=== PATIENT | male | born 1945 | race Caucasian/White ===

== ENCOUNTER 2016-10-22 12:55 | Inpatient (IN) | payer MEDICARE, BC ==
[~2016-10-22] VITALS: Ht 162.6 cm; Wt 141.5 kg
[2016-10-22 17:00] VITALS: BP 148/70
[2016-10-22] MEDS ORDERED: DEXTROSE 50% 50 ML SYRINGE IV PRN (17:45)
[2016-10-22] MEDS ORDERED: GLUCOSE 4 GM CHEW TABLET PO PRN (17:45)
[2016-10-22] MEDS ORDERED: GLUCAGON FOR INJ 1 MG VIAL (J1610) SC PRN (17:45)
[2016-10-22] MEDS ORDERED: FURO40TA2 PO (17:47)
[2016-10-22] MEDS ORDERED: ABIL30TA4 PO (17:47)
[2016-10-22] MEDS ORDERED: DILT360C16 PO (17:47)
[2016-10-22] MEDS ORDERED: LORA0.5T11 PO (17:47)
[2016-10-22] MEDS ORDERED: CARV25TA PO (17:47)
[2016-10-22] MEDS ORDERED: ALLO100T PO (17:47)
[2016-10-22] MEDS ORDERED: PRAV40TA2 PO (17:47)
[2016-10-22] MEDS ORDERED: GLIP5TAB8 PO (17:47)
[2016-10-22] MEDS ORDERED: SERT50TA PO (17:47)
[2016-10-22] MEDS ORDERED: OMEP20CA3 PO (17:47)
[2016-10-22] MEDS ORDERED: ENAL20TA PO (17:47)
[2016-10-22] MEDS ORDERED: FISH1000 PO (17:47)
[2016-10-22] MEDS ORDERED: INCR1INH INH (17:48)
[2016-10-22] MEDS ORDERED: IPRASOL4 INH (17:48)
[2016-10-22] MEDS ORDERED: SYMB80INH INH (17:48)
[2016-10-22] MEDS ORDERED: METH125VL IM (17:49)
[2016-10-22] MEDS ORDERED: HEPARIN SOD (PORCINE) 5000 UNITS/ML VIAL IV PRN (18:00)
[2016-10-22 18:09] LABS: VENOUS O2 SATURATION 83.4 % (60.0-80.0); VENOUS PARTIAL PRESSURE CO2 41.9 mmHg (38.0-50.0); VENOUS PARTIAL PRESSURE O2 51.7 mmHg (30.0-50.0); VENOUS STANDARD HCO3 26.1 MEQ/L
[2016-10-22] MEDS ORDERED: LORazepam 0.5 MG TAB PO PRN (18:30)
[2016-10-22] MEDS ORDERED: HEPARIN DRIP 25,000 UNITS in APPROPRIATE DILUENT 1 EA IV SCH (18:30)
--- NOTE | 2016-10-22 18:32 | REP ---
Portable chest, 06:06 p.m., single frontal view, the patient upright: Comparison is 08/29/2003. There is diffuse interstitial coarsening as an interval change. This could be partially secondary to under penetrated radiographic technique, however interstitial infiltrates cannot be entirely discounted. Cardiac size is enlarged, however there has magnification from portable positioning. The study is under penetrated. This may be a consequence of patient body habitus. Impression: Under penetrated technique. Interstitial coarsening as described. Cardiomegaly as described. Signed by Louis Palmer MD 10/22/2016 06:24 P
[2016-10-22 18:42] LABS: ADD MANUAL DIFFER YES; MEAN CORPUSCULAR HEMOGLOBIN 19.5 pg (27.0-33.0); MEAN CORPUSCULAR HGB CONC 28.7 g/dl (32.0-36.5); PLATELET COUNT, AUTOMATED 501 k/mm3 (150-450); RED CELL DISTRIBUTION WIDTH 18.3 % (11.5-14.5); WHITE BLOOD COUNT 13.6 K/mm3 (4.0-10.0)
[2016-10-22 18:54] LABS: ALBUMIN/GLOBULIN RATIO 0.83 (1.00-1.93); BILIRUBIN,TOTAL 0.6 MG/DL (0.2-1.0); CREATININE FOR GFR 1.81 MG/DL (0.70-1.30); GLOMERULAR FILTRATION RATE 39.7 (>42); MAGNESIUM LEVEL 1.8 MG/DL (1.8-2.4); POTASSIUM SERUM 4.5 MEQ/L (3.5-5.1); TOTAL PROTEIN 6.6 GM/DL (6.4-8.2)
[2016-10-22] MEDS: SYMBICORT 80/4.5MCG INHALER 6GM INH SCH (19:39)
--- NOTE | 2016-10-22 19:40 | REPUSA ---
CT of the chest without contrast Clinical statement: infiltrate. Technique: Multiple axial CT images were obtained with 5 mm cuts through the chest without administra tion of contrast. No comparison is available. Findings: There is a single enlarged precarinal lymph node measuring 2.2 x 1.2 cm. The visualized por tions of the thyroid gland is unremarkable. There are severe emphysematous changes seen throughout th e lungs bilaterally. Chronic interstitial scarring is seen throughout the lungs. There is a small rig ht lower lobe infiltrate and pleural effusion. Limited imaging of the upper abdomen does not demonstr ate any acute abnormalities. There are no suspicious osseous lesions. Impression: 1. Moderately severe emphysema and COPD. 2. Small right lower lobe infiltrate/atelectasis and pleural effusion. 3. Single enlarged precarinal lymph node.
--- NOTE | 2016-10-22 19:40 | REPUSA ---
Clinical history: Pain, swelling. Findings: The common femoral, superficial femoral, popliteal, and other deep venous structures compre ss normally and demonstrate normal color Doppler flow. Normal venous waveforms with augmentation are seen. Impression: No evidence of deep vein thrombosis in the femoral popliteal venous system.
[2016-10-22 19:45] LABS: HYPOCHROMASIA 2+; NUCLEATED RED BLOOD CELL 1 % (0-0)
[2016-10-22 19:46] LABS: ANISOCYTOSIS 2+; MICROCYTOSIS 3+; POLYCHROMASIA 1+
[2016-10-22 20:00] VITALS: BP 165/74
[2016-10-22] MEDS: FUROSEMIDE 40 MG/4 ML VIAL (J1940) IV SCH (20:19)
[2016-10-22] MEDS: CARVedilol 12.5 MG TAB PO SCH (20:20)
[2016-10-22] MEDS: ENALAPRIL MALEATE 10 MG TAB PO SCH (20:20)
[2016-10-22] MEDS: PRAVASTATIN 20 MG TAB PO SCH (20:21)
[2016-10-22] MEDS: ALLOPURINOL 100 MG TAB PO SCH (20:21)
[2016-10-22] MEDS: HumaLOG INSULIN (NovoLOG) PER UNIT SC SCH (20:54)
[2016-10-22 21:58] VITALS: O2SAT 90
[2016-10-22 22:00] VITALS: BP 125/60
[2016-10-22] MEDS: HEPARIN SOD (PORCINE) 5000 UNITS/ML VIAL SQ SCH (22:13)
[2016-10-22] MEDS: NYSTATIN 100,000 UNITS/GM TOPICAL PWD 15 GM TOP SCH (22:13)
[2016-10-22 23:00] VITALS: BP 128/59
--- NOTE | 2016-10-22 23:29 | CR ---
DATE OF CONSULTATION: 10/22/2016 REFERRING PROVIDER: Seth Biggs MD PRIMARY CARE PROVIDER: [facility], Lolita Perez NP REASON FOR CONSULTATION: Congestive heart failure. HISTORY OF PRESENT ILLNESS: 71-year-old male well known by the office and the last time he was seen there was on 08/15/2016, and has been stable. In the interim, he was seen by pulmonary and has been using oxygen continuously at home. He went to the hospital in [place] because of increasing shortness of breath, pedal edema, orthopnea that was going on for about 4-5 days. It seemed that he was hypoxemic on room air with an oxygen saturation of 91% on 4 liters nasal cannula. He also was found to be anemic. He was transferred here to [facility] for further management and monitoring. Cardiology consult was called. When I saw Mr. Gray Corea, he was in supine in bed in no acute distress at rest, on oxygen supplement and his was at bedside. He stated that he feels better. He denies any chest pain. He denies any active bleeding. He also denies any fever or chills. He takes medication regularly. Prior to going to the hospital, he was having shortness of breath with activity associated with a rapid heart rate and, as mentioned above, orthopnea. He denies chest pain. He denies nausea, vomiting, diarrhea, melena, or hematemesis. He denies any dysuria, polyuria, or hematuria. There is no focal manifestation. He has a past medical history positive for hypertension, hyperlipidemia, diabetes mellitus, chronic obstructive pulmonary disease (COPD), obesity, obstructive sleep apnea, arthritis/gout, anxiety/depression, gastroesophageal reflux disease (GERD), renal insufficiency. There is no history of obstructive coronary artery disease, myocardial infarction, atrial fibrillation, significant valvular heart disease, hyperlipidemia, CVA, sudden cardiac . He had an echocardiogram done in the past and there was a normal left ventricular (LV) systolic and diastolic function. MEDICATIONS: According to my last office visit note: - allopurinol 100 mg by mouth twice a day - albuterol MDI two puffs every 4 hours as needed - Cardizem CD 360 mg by mouth daily - carvedilol 12.5 mg tablet one-half tablet by mouth twice a day - enalapril 20 mg by mouth twice a day - Lasix 40 mg by mouth daily - fish oil 1000 mg by mouth daily - glipizide 5 mg by mouth daily - lorazepam 0.5 mg by mouth three times a day as needed - multivitamin one tablet by mouth daily - omeprazole 20 mg by mouth daily - Symbicort 80-4.5 mcg two puffs twice a day - tramadol 50 mg tablet 1-2 tablets as needed for pain - Zoloft 25 mg by mouth daily CURRENT MEDICATIONS: Are: - levofloxacin 250 mg IV every 24 hours - allopurinol 100 mg by mouth twice a day - Abilify 15 mg by mouth daily - budesonide 80/4.5 two puffs twice a day via inhalation - carvedilol 25 mg by mouth twice a day - Digoxin 360 mg by mouth daily - enalapril 20 mg by mouth twice a day - Lasix 40 mg IV every 4 hours with parameters - heparin IV drip - lorazepam 0.5 mg by mouth three times a day as needed for anxiety - fish oil 1000 mg by mouth daily - omeprazole 20 mg by mouth daily - pravastatin 40 mg by mouth daily - sertraline 50 mg by mouth daily - regular insulin coverage as well as glucagon and glucose tablet as needed for hypoglycemia PAST SURGICAL HISTORY: Positive for hernia repair. SOCIAL HISTORY: Patient lives in [facility], with his . He is a former smoker and has stopped many years ago. He denies any ethyl alcohol (EtOH) abuse or illicit drugs. ALLERGIES: No known drug allergies. ADVANCED DIRECTIVES: Patient is a FULL CODE. On physical examination, patient is alert and oriented, in no acute distress at rest, and his last vital signs revealed a blood pressure of 148/70, with a pulse of 90, respirations 24, and maximum temperature was 99 degrees Fahrenheit, with an oxygen saturation of 87-89% on 5 liters nasal cannula. Examination of the head, ears, eyes, nose and throat: Atraumatic. Neck is supple. No carotid bruits heard. The lungs revealed bilateral crackles at the bases. No wheezing. The heart examination revealed irregular heart sounds without gallops. The point of maximal impulse (PMI) is displaced inferiorly and laterally. There is no rub. I could not appreciate any murmurs. Abdomen is soft and nontender, bowel sounds active, obese. Extremities revealed +3 bilateral pitting lower leg edema. Neurological examination grossly is negative for focal deficit. LABORATORY DATA: EKG done on 10/24/2016, outside of the hospital at 08:08:48 revealed an irregular heart beat that seems to be sinus with multiple short atrial runs and premature atrial contractions (PACs). There is left axis deviation, left anterior hemiblock, and right bundle branch block. This was compared with EKG on 08/19/2015, no remarkable changes but the rhythm was more regular without any premature beats and there was lead reversal between I and aVR. TX was about 200 ms, unchanged. IMPRESSION: 1. Congestive heart failure in this 71-year-old male with history of normal left ventricular ejection fraction (LVEF). Patient seems to be stable and he stated that his shortness of breath has improved and I will continue with the diuretics. He is scheduled to have an echocardiogram and it will be reviewed, then further recommendation will be given. He has history of normal ejection fraction (EF) according to the most recent assessment and I will try to get a copy of his last echocardiogram from the office. He will continue with the two atrioventricular (AV) blocking agents. He is also on angiotensin-converting enzyme (JULES) inhibitor. We shall monitor closely his BUN, creatinine, and serum potassium. His blood pressure so far seems to be stable and, if needed, I will add spironolactone. 2. Atrial fibrillation, no prior history and the electrocardiogram I have reviewed in the chart does not seem to be quite atrial fibrillation and in view of his anemia, the IV heparin will be discontinued but he will given subcutaneous heparin for deep venous thrombosis (DVT) prophylaxis. Will continue with the calcium channel sy and the beta sy. 3. Hypertension, and he will be monitored. 4. History of hyperlipidemia, on a statin. 5. Diabetes mellitus, and this is being addressed. 6. History of chronic obstructive pulmonary disease (COPD) and obstructive sleep apnea. He has not been able to tolerate his continuous positive airway pressure (CPAP) machine and he has not been using it at home. 7. Anemia and he will need further workup. It was a pleasure to participate in the care of Mr. Gray Corea for his underlying cardiac condition. I will continue to monitor him along with you while in the hospital and as outpatient. Please do not hesitate to call if any questions. NICK
--- NOTE | 2016-10-22 23:40 | HPE ---
DATE OF ADMISSION: 10/22/2016 TIME PATIENT WAS SEEN : 1700. THE PATIENT'S SEAM CHECKER: Dr. Cardenas CHIEF COMPLAINT: Shortness of breath. HISTORY OF PRESENT ILLNESS: 71-year-old male with past medical history of severe chronic obstructive pulmonary disease (COPD), diastolic heart failure with preserved ejection fraction, history of anemia, chronic kidney disease stage III , hypertension, zti-boqlrul-elhgcxalo type 2 diabetes, gastroesophageal reflux disease (GERD), anxiety, gout, chronic pain presented [facility] for shortness of breath and was later on transferred to our facility. On the 2nd day, he was at [facility]. According to the patient, he has been having increased trouble breathing for the past four or five days. He also noticed increased sputum production, which was clear to yellow, also increased leg swelling, worse from baseline swelling. According to him, he used 4.5 liters of oxygen at home and that helped obstructive sleep apnea. However, he is not compliant with mask for years. He stated that while at [facility] he received levofloxacin at 750 and was later reduced to 500 mg. He also received Solu-Medrol 125 mg every 12 hours, also Lasix 40 mg twice a day and it was increased to 60 mg IV twice a day this morning. The patient felt somewhat better at [facility]. However, while he was there, he was found to have a new onset of atrial fibrillation on top of his chronic right bundle branch block and anterior fascicular block. According to the patient, he saw Dr. Cardenas just two months ago who recommended him to have a cardiac stress test done; however, he refused. The patient does not smoke. However, he used to smoke 7 years ago, 2 1/2 packs per day for 40 years and does still drink one or two beers at least four times a week and he is also noncompliant with salt intake. He stated that he likes to eat salt. Otherwise, he said that he never had a heart catheter or stent placement. The patient also denies any abdominal pains, any nausea, vomiting, diarrhea or constipation. However, he does admit to hemorrhoid and bleeding from the hemorrhoid chronically for many months and he also has a chest pressure and he says it is better with oxygen and worse without oxygen. ALLERGIES: No known drug allergies. HOME MEDICATIONS INCLUDING: - DuoNeb one inhalation four times a day - allopurinol 100 mg one tablet by mouth twice a day - Abilify 50 mg one tablet by mouth daily - Symbicort 84.5 mcg two puff inhalation twice a day - carvedilol 25 mg one tablet by mouth twice a day - diltiazem 360 mg one tablet by mouth daily - enalapril 20 mg one tablet by mouth twice a day - fish oil 1000 mg one tablet by mouth daily - Lasix 40 mg one tablet by mouth twice a day - glipizide 10 mg one tablet by mouth daily - Incruse 62.5 mcg inhalation daily - Ativan 0.5 mg one tablet by mouth three times a day as needed - Solu-Medrol 125 mg intramuscular (IM) every 12 hours, which was started on [facility] - omeprazole 20 mg by mouth daily - Pravastatin 40 mg by mouth at bedtime (q.h.s.) - sertraline 50 mg one tablet by mouth daily PAST MEDICAL HISTORY INCLUDIN. Diastolic heart failure with preserved ejection fraction on the last echocardiogram. However, we do not have access to the echocardiogram report. 2. Chronic kidney disease (CKD), stage III, severe. 3. 4.5 nasal cannula oxygen 24 hours at home. 4. Hypertension. 5. Obstructive sleep apnea, noncompliant with CPAP. 6. Omq-oqpaabt-ajgppcwqm type 2 diabetes. 7. Gastroesophageal reflux disease (GERD). 8. Anxiety. 9. Gout. 10. Chronic pain PAST SURGICAL HISTORY: Denies. SOCIAL HISTORY: The patient admits to living with . Currently working with a worker. However, was able to work better before 4 to 5 days ago. The patient quit smoking 7 years ago. He used to smoke 2 1/2 packs for 40 years. Admits to recent drinking about one or two beers two days ago and usually drinks roughly 4 times a week. However, he denies any heavy drinking. Denies any recreational drug use. FAMILY HISTORY: Admits to father has heart disease. REVIEW OF SYSTEMS: GENERAL: Denies any recent travel or sick contacts. Denies any recent weight loss, any fever or chills. HEENT: Denies any changes with vision, hearing or taste. CARDIOVASCULAR: Admits to chest pressure. Denies any racing heart beat or palpitations. LUNGS: Admits to trouble breathing. Also admits to chronic obstructive pulmonary disease (COPD). Admits to the use of oxygen 4.5 liters on nasal cannula. Admits to noncompliance with mask for obstructive sleep apnea. Usually, the patient sleeps sitting up on the recliner. GASTROINTESTINAL (GI): Denies any abdominal pain, nausea, vomiting, diarrhea or constipation. Admits to gastrointestinal (GI) blood loss from hemorrhoid. GENITOURINARY (): Denies any problem with urination. HEMATOLOGY/ONCOLOGY: Denies any easy bruising, any bleeding anywhere. ENDOCRINE: Admits to feeling cold all the time. Denies any heat intolerance. PSYCHIATRY: Admits to anxiety. PHYSICAL EXAMINATION: VITAL SIGNS: Temperature 99, pulse 89, respirations 20, blood pressure 148/70, oxygen saturation at 89% on VentiMask with FiO2 of 35. GENERAL: The patient is a morbidly obese elderly male who was alert, awake and oriented times three, does not appear to be distress, sitting up in his bed with head elevated at roughly 60 degrees on VentiMask. HEENT: Normocephalic, atraumatic. Extraocular muscles intact. Mucous moist. NECK: Supple. No neck lymphadenopathy. However, the patient does have jugular venous distension (JVD) extending to the ear lobes. CARDIOVASCULAR: Normal S1, S2. Difficult to auscultate due to increase AP diameter and body habitus. Irregular heart beat. LUNGS: With slight rales bilaterally. ABDOMEN: Positive bowel sounds, soft and nontender, nondistended. No peritoneal signs. No ecchymosis. EXTREMITIES: 2+ pitting edema in bilateral lower extremities extending to below the knee. SKIN: Warm and dry. There was slight erythema on the left inner thigh. NEURO: Cranial nerves II/XII intact. No focal neurological deficit. LABORATORY: White blood count (WBC) 13.6, hemoglobin 8.4, hematocrit 29.4 with a platelet count of 501 and MCV of 68. Sodium 131, potassium 4.5, chloride 94, bicarbonate 27, anion gap 10, BUN 29, creatine 1.81, glomerular filtration rate (GFR) 39, fasting glucose 147, calcium 9, magnesium 1.8, total bilirubin 0.6, AST 14, ALT 20, alkaline phosphatase 75, total creatine kinase 90, CK-MB 1, CK-MB index 1.1, troponin 0.03, total protein 6.6, albumin 3, it was low. The patient's PTT was 23. The patient's venous blood gas shows a pH of 7.4, pCO2 of 41.9 and pO2 of 51. The patient's Acu-check glucose was 168. The patient had a portable chest x-ray in the intensive care unit (ICU) shows under penetrated technique, interstitial coarsening described, as interstitial infiltrates cannot be entirely discounted. ASSESSMENT AND PLAN: 71-year-old male who was transferred from [facility] with multiple comorbidities, was initially thought to have a chronic obstructive pulmonary disease (COPD) exacerbation and had Levaquin and Solu-Medrol. However, was later believed to be congestive heart failure (CHF) exacerbation, was transferred to our care due to new onset of atrial fibrillation in addition to the patient's chronic disease and chronic obstructive pulmonary disease (COPD) exacerbation, presented with: 1. Shortness of breath, likely secondary to pulmonary edema from decompensated congestive heart failure (CHF), likely exacerbated by new onset of atrial fibrillation and also anemia and alcohol use, not compliant with sodium diet, also, steroid use and DuoNeb use before transferring. At this point, will continue Lasix 40 mg IV every 4 hours with negative 1.5 liters in 24 hours and echocardiogram has been ordered. In addition, we have consulted Dr. Cardenas from cardiology. We appreciate his help. At this point, will continue his home medications with Cardizem 360 mg and also Coreg 25 mg by mouth twice a day with hold parameters. Will continue to monitor input and output. 2. New onset of atrial fibrillation. The patient initially had rapid ventricular response at [facility]. However, currently, the patient' s heart rate is around 100. The patient is home medication, Cardizem 360 mg and also Coreg 25 mg. However, the patient's clinical picture is complicated by having a history of right bundle branch block with anterior fascicular block. Therefore, cardiology's recommendation is appreciated. We have started the patient on heparin drip as well. Possibly transitioning the patient to coumadin later on. The patient's new onset atrial fibrillation is possibly related to the congestive heart failure (CHF). Also, the patient is noncompliant with CPAP for obstructive sleep apnea, as well as the anemia and alcohol use and also steroid and DuoNeb use. 3. Leukocytosis. The patient's white blood count (WBC) was slightly elevated at 13.6, possibly due to stress versus steroid usage. Will continue to trend. Currently, the patient does not have a fever. Will consider infectious etiologies if the patient develops a fever or continue to have a white cell increase or if white blood count (WBC) continues to increase. 4. Chronic kidney disease stage III, appears to be baseline. Continue to monitor. 5. Severe chronic obstructive pulmonary disease (COPD) with 4.5 liters of oxygen at home, continue to titrate oxygen between 88 and 92%. 6. Hypertension. Continue beta sy with previously mentioned enalapril 20 mg by mouth twice a day and continue to monitor the patient. 7. Hyperlipidemia. Continue pravastatin 40 mg by mouth at bedtime (q.h.s.) 8. Obstructive sleep apnea, noncompliant with CPAP at night. Will place the patient on obstructive sleep apnea protocol and continue the patient on nasal cannula throughout the night. 9. History of gastroesophageal reflux disease (GERD). Continue proton pump inhibitor (PPI). 10. History of anxiety. Continue home medication with Zoloft and also as needed Ativan. 11. History of gout. Continue allopurinol. 12. Chronic pains. Will continue the patient on Tylenol. 13. Morbid Obesity. BMI 52. Stable. 14. Deep vein thrombosis (DVT) prophylaxis. Continue the patient on heparin drip for new onset atrial fibrillation. DISPOSITION: Will follow cardiology's recommendation at this point. Will continue to diurese the patient and monitor the patient's heart rate for possible rapid ventricular response and continue beta sy at this point. However, will be cautious due to the patient has both right beta blockers and also anterior fascicular block and monitor the patient's input and output closely. The patient has been discussed with attending doctor, Dr. Alex. My preceptor for this patient encounter was Dr. Alex. The preceptor was physically present in the building during the encounter and was fully available. As needed, all aspects of the patient interview, examination, medical decision making process, and medical care plan development were reviewed and approved by the preceptor. The preceptor is aware and concurs with the plan as stated in the body of this note and will attest to such by his/her cosignature. NICK
[2016-10-23] VITALS (7 sets, daily range): BP systolic 98–146; BP diastolic 55–67
[2016-10-23] MEDS: FUROSEMIDE 40 MG/4 ML VIAL (J1940) IV SCH ×6 (00:14→20:59)
[2016-10-23 05:21] LABS: ADD MANUAL DIFFER YES; MEAN CORPUSCULAR HEMOGLOBIN 19.4 pg (27.0-33.0); MEAN CORPUSCULAR HGB CONC 28.6 g/dl (32.0-36.5); PLATELET COUNT, AUTOMATED 494 k/mm3 (150-450); RED CELL DISTRIBUTION WIDTH 18.1 % (11.5-14.5); WHITE BLOOD COUNT 14.7 K/mm3 (4.0-10.0)
[2016-10-23 05:30] LABS: ALBUMIN 2.7 GM/DL (3.2-5.2); ALBUMIN/GLOBULIN RATIO 0.73 (1.00-1.93); BILIRUBIN,TOTAL 0.4 MG/DL (0.2-1.0); CALCIUM LEVEL 8.8 MG/DL (8.8-10.2); CREATININE FOR GFR 2.05 MG/DL (0.70-1.30); GLOMERULAR FILTRATION RATE 34.3 (>42); MAGNESIUM LEVEL 1.9 MG/DL (1.8-2.4); PERCENT SATURATION 4.2 % (19.7-37.4); TOTAL PROTEIN 6.4 GM/DL (6.4-8.2)
[2016-10-23 06:22] LABS: NUCLEATED RED BLOOD CELL 1 % (0-0)
[2016-10-23 06:23] LABS: ANISOCYTOSIS 1+; HYPOCHROMASIA 2+; MICROCYTOSIS 3+
[2016-10-23] MEDS: HEPARIN SOD (PORCINE) 5000 UNITS/ML VIAL SQ SCH ×3 (06:29→21:01)
[2016-10-23 06:38] LABS: EOS % 0.2 % (0.0-3.0); LARGE UNSTAINED CELL # 0.1 K/mm3 (0.0-0.4); LARGE UNSTAINED CELL % 0.5 % (0.0-4.0); LYMPH # 0.5 K/mm3 (1.5-4.5); LYMPH % 3.2 % (24.0-44.0); MONO # 0.4 K/mm3 (0.0-0.8); MONO % 2.9 % (0.0-5.0); NEUTROPHILS # 13.5 K/mm3 (1.8-7.7); NEUTROPHILS % 93.2 % (36.0-66.0); RETIC HEMOGLOBIN CONTENT CHr 20.6 PG (24-36); RETICULOCYTE ABSOLUTE ADVIA212 93 x10(9)/L (17-77)
[2016-10-23] MEDS: SYMBICORT 80/4.5MCG INHALER 6GM INH SCH ×2 (07:44→19:40)
--- NOTE | 2016-10-23 08:03 | ECGEPIP ---
Stationary ECG Study [facility] Test Date: 2016-10-22 Pat Name: FIDEL RUIZ Department: Room: [place] [address] Gender: M Band Splicer: HARSH : 1945 Requested By: CHAYO FORBES Order Number: [id number] Reading MD: Ozzy Dejesus Measurements Intervals [place] Rate: 87 P: 10 IA: 176 QRS: -44 QRSD: 143 T: -5 QT: 386 QTc: 467 Interpretive Statements SINUS RHYTHM Left anterior fascicular block RIGHT BUNDLE BRANCH BLOCK POSSIBLE LEFT VENTRICULAR HYPERTROPHY Comparison tracing not on file Electronically Signed On 10-23-2016 8:03:51 EDT by Ozzy Dejesus
[2016-10-23] MEDS: OMEGA-3 1050MG CAPSULE PO SCH (08:05)
[2016-10-23] MEDS: SERTRALINE HCL 50 MG TAB PO SCH (08:05)
[2016-10-23] MEDS: ARIPiprazole 15 MG TAB (AbiLIFY) PO SCH (08:05)
[2016-10-23] MEDS: OMEPRAZOLE 20 MG CAP PO SCH (08:05)
[2016-10-23] MEDS: ENALAPRIL MALEATE 10 MG TAB PO SCH ×2 (08:06→21:05)
[2016-10-23] MEDS: diltiaZEM **CD** 180 MG CAP PO SCH (08:06)
[2016-10-23] MEDS: ALLOPURINOL 100 MG TAB PO SCH ×2 (08:07→21:15)
[2016-10-23] MEDS: LevoFLOXacin IV 250 MG in APPROPRIATE DILUENT 1 EA IV SCH (08:07)
[2016-10-23] MEDS: CARVedilol 12.5 MG TAB PO SCH ×2 (08:07→21:05)
[2016-10-23] MEDS: NYSTATIN 100,000 UNITS/GM TOPICAL PWD 15 GM TOP SCH ×2 (08:08→21:01)
[2016-10-23] MEDS: FERROUS GLUCONATE 324 MG TAB PO SCH ×3 (09:54→18:27)
[2016-10-23] MEDS: ASCORBIC ACID 500 MG TAB PO SCH ×2 (11:46→21:01)
[2016-10-23] MEDS: HumaLOG INSULIN (NovoLOG) PER UNIT SC SCH ×3 (12:55→21:00)
--- NOTE | 2016-10-23 20:29 | IPNPDOC ---
Text Note Date of Service The patient was seen on 10/23/16. NOTE Subjective: Patient seen and examined at bedside. Patient is feeling better. He was able to breathing better and admits to less swelling in lower extremities. Denies any chest pain, abdominal pain, nausea, vomiting, diarrhea, constipation , blood in urine or stool. Denies any other current new complaints. Objective: Vitals: (See below) General: Patient is a morbidly obese elderly male laying comfortably in bed, AAOx3, not in apparent distress, with head elevated at 30 degrees HEENT: Normal cephalic atraumatic, Extraocular motion intact, pupil equal round and reactive to light, mucosal membrane moist, neck supple, no neck lymphadenopathy Cardio: RRR Difficult to auscultate due to increased AP diameter and body habitus. Positive JVD Pulm: Slight b/l rales at basilar region Abdomen: + bowel sounds, soft, none tender, none distended, no peritoneal signs , no ecchymosis, no masses that were palpable Ext: 2+ pitting edema b/l lower extremity Skin: Warm and dry Neuro: Cranial Nerve 2 through 12 intact, No focal neurological deficit Labs ( See below) Most significantly: WBC 14.7, hgb of 8, plt 494, Ferritin of only 5, Na of 131, GRF of 34.3. Urine culture pending. Images/Procedures: None Assessment and Plan: 71-year-old male who was transferred from [facility] with multiple comorbidities, was initially thought to have a chronic obstructive pulmonary disease (COPD) exacerbation and had Levaquin and Solu-Medrol. However, was later believed to be congestive heart failure (CHF) exacerbation, was transferred to our care due to new onset of atrial fibrillation in addition to the patient's chronic disease and chronic obstructive pulmonary disease (COPD) exacerbation, presented with: 1. Shortness of breath, likely secondary to pulmonary edema from decompensated congestive heart failure (CHF), possible exacerbated by a fib. Cardiology Dr. Cardenas has been consulted. We appreciate his help. At this point it is unclear if patient had real afib. It was not captured on EKG done in our hosptial. Patient had normal LVEF inthe past. Continue current duel AV blocking agents and ACEI. Dr. Cardenas recommended to consider to add sprionolactone if BP become uncontrolled. Continue to diuresis patient with lasix with negative 1.5 L, and diet with 1.5 fluid restriction with no added salt. 2. Severe iron deficiency anemia. With Ferritin of only 5. Started patient on Ferrous Gluconate 324 mg tid with meals and Vitamin C. No IV iron due to trying to limit side effects from the transfusion while patient is having possible afib and decompensated HF. 3. New onset of atrial fibrillation. The patient initially had rapid ventricular response at [facility]. At this point patient is in sinus rhythm. Heparin drip was discontinued due to a concern if this is a real afib. Subcu heparin was restarted and continued him on beta sy and calcium channel sy. 4. Leukocytosis. Still elevated, possibly due to stress versus steroid usage. Will continue to trend. Currently, the patient does not have a fever. 5. Chronic kidney disease stage III, appears to be baseline. Continue to monitor. 6. Severe chronic obstructive pulmonary disease (COPD) with 4.5 liters of oxygen at home, continue to titrate oxygen between 88 and 92%. 7. Hypertension. Continue beta sy with previously mentioned enalapril 20 mg by mouth twice a day and continue to monitor the patient. 8. Hyperlipidemia. Continue pravastatin 40 mg by mouth at bedtime (q.h.s.) 9. Obstructive sleep apnea, noncompliant with CPAP at night. Will place the patient on obstructive sleep apnea protocol and continue the patient on nasal cannula throughout the night. 10. History of gastroesophageal reflux disease (GERD). Continue proton pump inhibitor (PPI). 11. History of anxiety. Continue home medication with Zoloft and also as needed Ativan. 12. History of gout. Continue allopurinol. 13. Chronic pains. Will continue the patient on Tylenol. DVT prophylaxis: Hep subcu 5000u q8H Fluid, Electrolytes, Nutrition: Consistent carbohydrate diet, 1.5 L fluid restriction, no added salt Code: No advanced directive Disposition: Will consider to downgrade patient to floor tomorrow with permission from Dr. Cardenas. Continue to follow Dr. Cardenas's recommendation. Patient discussed with attending Dr. Biggs. Ruddy BALLARD, I+O Ruddy BALLARD, I+O Laboratory Tests 10/23/16 04:42 Red Blood Count 4.09 L, Mean Corpuscular Volume 68.0 L, Mean Corpuscular Hemoglobin 19.4 L, Mean Corpuscular Hemoglobin Concent 28.6 L, Red Cell Distribution Width 18.1 H, Neutrophils (%) (Auto) 93.2 H, Lymphocytes (%) (Auto ) 3.2 L, Monocytes (%) (Auto) 2.9, Eosinophils (%) (Auto) 0.2, Basophils (%) ( Auto) 0.0, Neutrophils # (Auto) 13.5 H, Lymphocytes # (Auto) 0.5 L, Monocytes # (Auto) 0.4, Eosinophils # (Auto) 0.0, Basophils # (Auto) 0.0, Calcium Level 8.8 , Aspartate Amino Transf (AST/SGOT) 14 L, Alanine Aminotransferase (ALT/SGPT) 21 , Lactate Dehydrogenase 184, Alkaline Phosphatase 69, Total Bilirubin 0.4, Total Protein 6.4, Albumin 2.7 L Vital Signs Date Time Temp Pulse Resp B/P (MAP) Pulse Ox O2 Delivery O2 Flow Rate FiO2 10/23/16 16:00 97.7 73 29 113/55 (74) 94 Venturi Mask 12.0 35 I&O- Last 24 Hours up to 6 AM 10/23/16 06:00 Intake Total 405 ml Output Total 2575 ml Balance -2170 ml GME ATTESTATION GME ATTESTATION My preceptor for this patient encounter was physically present in the building during the encounter and was fully available. As needed, all aspects of the patient interview, examination, medical decision making process, and medical care plan development were reviewed and approved by the preceptor. Preceptor is aware and concurs with the plan as stated in the body of this note and will attest to such by his/her cosignature. CLARIBEL WOMACK DO Oct 23, 2016 20:29
[2016-10-23] MEDS: PRAVASTATIN 20 MG TAB PO SCH (21:02)
[2016-10-24] VITALS (7 sets, daily range): BP systolic 110–137; BP diastolic 53–62; O2SAT 94
[2016-10-24] MEDS: FUROSEMIDE 40 MG/4 ML VIAL (J1940) IV SCH ×5 (00:25→17:00)
[2016-10-24 05:13] LABS: MEAN CORPUSCULAR HEMOGLOBIN 19.2 pg (27.0-33.0); MEAN CORPUSCULAR HGB CONC 28.3 g/dl (32.0-36.5); PLATELET COUNT, AUTOMATED 517 k/mm3 (150-450); RED CELL DISTRIBUTION WIDTH 18.4 % (11.5-14.5); WHITE BLOOD COUNT 13.2 K/mm3 (4.0-10.0)
[2016-10-24 05:14] LABS: ADD MANUAL DIFFER YES; DIFF SLIDE NUMBER 51
[2016-10-24 05:19] LABS: ALBUMIN 2.7 GM/DL (3.2-5.2); ALBUMIN/GLOBULIN RATIO 0.75 (1.00-1.93); BILIRUBIN,TOTAL 0.3 MG/DL (0.2-1.0); CALCIUM LEVEL 8.3 MG/DL (8.8-10.2); CREATININE FOR GFR 2.38 MG/DL (0.70-1.30); GLOMERULAR FILTRATION RATE 28.9 (>42); MAGNESIUM LEVEL 2.1 MG/DL (1.8-2.4); POTASSIUM SERUM 3.7 MEQ/L (3.5-5.1); TOTAL PROTEIN 6.3 GM/DL (6.4-8.2)
[2016-10-24] MEDS: HEPARIN SOD (PORCINE) 5000 UNITS/ML VIAL SQ SCH ×3 (06:11→21:56)
[2016-10-24 06:20] LABS: ANISOCYTOSIS 2+; HYPOCHROMASIA 2+
[2016-10-24 06:22] LABS: MICROCYTOSIS 3+
[2016-10-24] MEDS: SYMBICORT 80/4.5MCG INHALER 6GM INH SCH ×2 (07:30→20:16)
[2016-10-24] MEDS: SERTRALINE HCL 50 MG TAB PO SCH (08:49)
[2016-10-24] MEDS: OMEGA-3 1050MG CAPSULE PO SCH (08:50)
[2016-10-24] MEDS: OMEPRAZOLE 20 MG CAP PO SCH (08:52)
[2016-10-24] MEDS: ASCORBIC ACID 500 MG TAB PO SCH ×2 (08:52→21:52)
[2016-10-24] MEDS: CARVedilol 12.5 MG TAB PO SCH ×2 (08:52→21:52)
[2016-10-24] MEDS: ALLOPURINOL 100 MG TAB PO SCH ×2 (08:52→21:51)
[2016-10-24] MEDS: FERROUS GLUCONATE 324 MG TAB PO SCH ×3 (08:53→16:59)
[2016-10-24] MEDS: diltiaZEM **CD** 180 MG CAP PO SCH (08:53)
[2016-10-24] MEDS: LevoFLOXacin IV 250 MG in APPROPRIATE DILUENT 1 EA IV SCH (08:54)
[2016-10-24] MEDS: HumaLOG INSULIN (NovoLOG) PER UNIT SC SCH ×4 (08:58→21:53)
[2016-10-24] MEDS: NYSTATIN 100,000 UNITS/GM TOPICAL PWD 15 GM TOP SCH ×2 (09:00→22:01)
[2016-10-24] MEDS: ARIPiprazole 15 MG TAB (AbiLIFY) PO SCH (09:00)
[2016-10-24] MEDS: ENALAPRIL MALEATE 10 MG TAB PO SCH ×2 (09:00→21:53)
--- NOTE | 2016-10-24 10:46 | IPNPDOC ---
Text Note Date of Service The patient was seen on 10/24/16. NOTE Subjective: Patient seen and examined at bedside. Patient is breathing better. He also admits to less swelling in lower extremities. Denies any chest pain, abdominal pain, nausea, vomiting, diarrhea, constipation, blood in urine or stool. Telemetry shows patient was in sinus rhythm. Denies any other current new complaints. Objective: Vitals: (See below) General: Patient is a morbidly obese elderly male laying comfortably in bed, AAOx3, not in apparent distress, with head elevated at 30 degrees HEENT: Normal cephalic atraumatic, Extraocular motion intact, pupil equal round and reactive to light, mucosal membrane moist, neck supple, no neck lymphadenopathy Cardio: RRR, Normal S1, S2, no murmurs, Positive JVD Pulm: Clear to auscultation bilaterally Abdomen: + bowel sounds, soft, none tender, none distended, no peritoneal signs , no ecchymosis, no masses that were palpable Ext: 1+ pitting edema b/l lower extremity Skin: Warm and dry Neuro: Cranial Nerve 2 through 12 intact, No focal neurological deficit Labs ( See below) Most significantly: WBC 13.2, hgb of 8, plt 517, Na of 132, GRF of 29, Urine culture pending. Images/Procedures: None Assessment and Plan: 71-year-old male who was transferred from [facility] with multiple comorbidities, was initially thought to have a chronic obstructive pulmonary disease (COPD) exacerbation and had Levaquin and Solu-Medrol. However, was later believed to be congestive heart failure (CHF) exacerbation, was transferred to our care due to new onset of atrial fibrillation in addition to the patient's chronic disease and chronic obstructive pulmonary disease (COPD) exacerbation, presented with: 1. Shortness of breath, likely secondary to pulmonary edema from decompensated congestive heart failure (CHF), possible exacerbated by a fib. Cardiology Dr. Cardenas has been consulted. We appreciate his help. Telemetry shows Sinus rhythm. At this point it is unclear if patient had real afib. Revisit of patient's EKG at [facility] shows the afib was questionable too. Patient had normal LVEF in the past. Continue current duel AV blocking agents and ACEI. Dr. Cardenas recommended to consider to add sprionolactone if BP become uncontrolled. Continue to diuresis patient with lasix with negative 1.5 L, and diet with 1.5 fluid restriction with no added salt. Will ask Dr. Cardenas today to see if we can downgrade him to regular floor. 2. Severe iron deficiency anemia. With Ferritin of only 5. Started patient on Ferrous Gluconate 324 mg tid with meals and Vitamin C. No IV iron due to trying to limit side effects from the transfusion while patient is having possible afib and decompensated HF. Will investigate reason for iron def anemia with fecal occult and rule out celiac with TTG IgA. 3. New onset of atrial fibrillation now questionable. Before the transferring we were told the patient initially had a fib with rapid ventricular response at [facility]. At this point patient is in sinus rhythm. Heparin drip was discontinued due to a concern if this is a real afib. Subcu heparin was restarted and continued him on beta sy and calcium channel sy. 4. Leukocytosis. Still elevated but improved, possibly due to stress versus steroid usage. Will continue to trend. Currently, the patient does not have a fever. 5. Chronic kidney disease stage III, appears to be baseline, slightly worsening likely from diuresis. Continue to monitor. 6. Severe chronic obstructive pulmonary disease (COPD) with 4.5 liters of oxygen at home, continue to titrate oxygen between 88 and 92%. Currently on 6 L NC O2. 7. Hypertension. Continue beta sy with previously mentioned enalapril 20 mg by mouth twice a day and continue to monitor the patient. 8. Hyperlipidemia. Continue pravastatin 40 mg by mouth at bedtime (q.h.s.) 9. Obstructive sleep apnea, noncompliant with CPAP at night. Will place the patient on obstructive sleep apnea protocol and continue the patient on nasal cannula throughout the night. 10. History of gastroesophageal reflux disease (GERD). Continue proton pump inhibitor (PPI). 11. History of anxiety. Continue home medication with Zoloft and also as needed Ativan. 12. History of gout. Continue allopurinol. 13. Chronic pains. Will continue the patient on Tylenol. DVT prophylaxis: Hep subcu 5000u q8H Fluid, Electrolytes, Nutrition: Consistent carbohydrate diet, 1.5 L fluid restriction, no added salt Code: No advanced directive Disposition: Will consider to downgrade patient to floor today with permission from Dr. Cardenas. Continue to follow Dr. Cardenas's recommendation. Patient discussed with attending Dr. Biggs. VS,Fishbone, I+O VS, Fishbone, I+O Laboratory Tests 10/24/16 04:42 Calcium Level 8.3 L, Aspartate Amino Transf (AST/SGOT) 19, Alanine Aminotransferase (ALT/SGPT) 34, Alkaline Phosphatase 70, Total Bilirubin 0.3, Total Protein 6.3 L, Albumin 2.7 L 10/24/16 04:51 Red Blood Count 4.18 L, Mean Corpuscular Volume 68.0 L, Mean Corpuscular Hemoglobin 19.2 L, Mean Corpuscular Hemoglobin Concent 28.3 L, Red Cell Distribution Width 18.4 H Vital Signs Date Time Temp Pulse Resp B/P (MAP) Pulse Ox O2 Delivery O2 Flow Rate FiO2 10/24/16 08:53 71 118/57 10/24/16 07:36 94 Nasal Cannula 6.0 10/24/16 04:00 35 10/24/16 04:00 98.3 26 I&O- Last 24 Hours up to 6 AM 10/24/16 06:00 Intake Total 1340 ml Output Total 4140 ml Balance -2800 ml GME ATTESTATION GME ATTESTATION My preceptor for this patient encounter was physically present in the building during the encounter and was fully available. As needed, all aspects of the patient interview, examination, medical decision making process, and medical care plan development were reviewed and approved by the preceptor. Preceptor is aware and concurs with the plan as stated in the body of this note and will attest to such by his/her cosignature. CLARIBEL WOMACK DO Oct 24, 2016 10:46
--- NOTE | 2016-10-24 15:35 | IPN ---
DATE: 10/23/2016 Mr. Gray Corea was seen earlier this morning, he was supine in bed, no acute distress. He stated that his shortness of breath has improved. He denies any palpitations. There is orthopnea or paroxysmal nocturnal dyspnea (PND). His cough also has improved. There is no focal manifestation. On physical examination, the patient is alert and oriented. No acute distress and his vital signs this morning when I saw him revealed a blood pressure of 143/64 with a pulse of 70, respirations 20 and his maximum temperature was 98.9 degrees Fahrenheit with an oxygen saturation of 90% on FiO2 of 35% via Venturi mask. He is in a negative fluid balance. Examination of the head is normocephalic, atraumatic. Neck is supple. No jugular venous distention (JVD) or carotid bruits heard. The lungs reveal minimal crackles at the bases, but no wheezing. The heart examination reveals normal S1 and S2 without gallops. Point of maximal impulse (PMI) is not displaced. There is no rub. I could not appreciate any murmurs. Abdomen is soft and nontender. Bowel sounds are heard. Extremities reveal +2 bilateral lower leg edema. Neurological examination grossly negative for focal deficit. LABS: BMP done this morning revealed a sodium of 131, potassium 4.0, chloride 94 , CO2 28, BUN 37, creatinine 2.07. GFR 34.3. Fasting glucose 193 and calcium 8.8. Magnesium is 1.9. Liver enzymes revealed a total bilirubin of 0.4. AST 14, ALT 21, alkaline phosphatase 69, total protein 6.4, albumin 2.7. Anemia workup revealed a total iron of 18. TIBC 431. Ferritin 5. Transferrin was 4.2. Serum vitamin B12 was 331 and serum folate was 7.0. CBC revealed WBC of 14.7, hemoglobin 8.0, hematocrit 27.8 and platelet 494,000. Telemetry done this morning revealed normal sinus rhythm. Mr. Gray Corea seems to be stable and her symptoms have improved. He was admitted yesterday with congestive heart failure, he has a history of normal left ventricular systolic function. Will continue current medications and willing to monitor closely his BUN and creatinine. He is planning to have an echocardiogram and it will be reviewed and further recommendations will be given. He was told that he was in atrial fibrillation, but upon reviewing his EKG, it seems that it was normal sinus rhythm with PACs and for this reason, the IV heparin was discontinued and was started on deep venous thrombosis (DVT) prophylaxis with subcutaneous heparin. His blood glucose revealed significant arrhythmias and he denies any active bleeding. Currently, anemia workup is being done. His blood pressure seems to be under control. It was a pleasure to participate in the care of Mr. Gray Corea for his underlying cardiac condition. I will continue to monitor him along with you while in the hospital. At this present time, he appears to be stable. NICK
[2016-10-24] MEDS: PRAVASTATIN 20 MG TAB PO SCH (21:51)
[2016-10-25 06:00] VITALS: BP 131/60
[2016-10-25] MEDS: HEPARIN SOD (PORCINE) 5000 UNITS/ML VIAL SQ SCH ×3 (06:00→21:04)
[2016-10-25 06:29] LABS: BASO % 0.1 % (0.0-1.0); EOS # 0.5 K/mm3 (0.0-0.50); EOS % 5.1 % (0.0-3.0); LARGE UNSTAINED CELL # 0.1 K/mm3 (0.0-0.4); LARGE UNSTAINED CELL % 1.2 % (0.0-4.0); LYMPH # 1.6 K/mm3 (1.5-4.5); LYMPH % 14.9 % (24.0-44.0); MEAN CORPUSCULAR HEMOGLOBIN 19.2 pg (27.0-33.0); MEAN CORPUSCULAR HGB CONC 27.6 g/dl (32.0-36.5); MEAN CORPUSCULAR VOLUME 69.7 fl (80.0-96.0); MONO # 0.6 K/mm3 (0.0-0.8); MONO % 5.8 % (0.0-5.0); NEUTROPHILS # 7.5 K/mm3 (1.8-7.7); NEUTROPHILS % 72.8 % (36.0-66.0); PLATELET COUNT, AUTOMATED 492 k/mm3 (150-450); RED CELL DISTRIBUTION WIDTH 19.2 % (11.5-14.5); WHITE BLOOD COUNT 10.2 K/mm3 (4.0-10.0)
[2016-10-25 06:43] LABS: ALBUMIN 2.7 GM/DL (3.2-5.2); ALBUMIN/GLOBULIN RATIO 0.75 (1.00-1.93); BILIRUBIN,TOTAL 0.4 MG/DL (0.2-1.0); CALCIUM LEVEL 8.6 MG/DL (8.8-10.2); CREATININE FOR GFR 2.48 MG/DL (0.70-1.30); GLOMERULAR FILTRATION RATE 27.6 (>42); MAGNESIUM LEVEL 2.5 MG/DL (1.8-2.4); POTASSIUM SERUM 3.9 MEQ/L (3.5-5.1); TOTAL PROTEIN 6.3 GM/DL (6.4-8.2)
[2016-10-25] MEDS: SYMBICORT 80/4.5MCG INHALER 6GM INH SCH ×2 (07:15→21:00)
[2016-10-25] MEDS: FUROSEMIDE 40 MG/4 ML VIAL (J1940) IV SCH (08:13)
[2016-10-25] MEDS: HumaLOG INSULIN (NovoLOG) PER UNIT SC SCH ×4 (08:13→20:53)
[2016-10-25] MEDS: OMEGA-3 1050MG CAPSULE PO SCH (08:14)
[2016-10-25] MEDS: ASCORBIC ACID 500 MG TAB PO SCH ×2 (08:14→21:03)
[2016-10-25] MEDS: FERROUS GLUCONATE 324 MG TAB PO SCH ×3 (08:14→17:18)
[2016-10-25] MEDS: diltiaZEM **CD** 180 MG CAP PO SCH (08:14)
[2016-10-25] MEDS: OMEPRAZOLE 20 MG CAP PO SCH (08:15)
[2016-10-25] MEDS: CARVedilol 12.5 MG TAB PO SCH ×2 (08:15→21:03)
[2016-10-25] MEDS: SERTRALINE HCL 50 MG TAB PO SCH (08:15)
[2016-10-25] MEDS: ALLOPURINOL 100 MG TAB PO SCH ×2 (08:15→21:03)
[2016-10-25] MEDS: ENALAPRIL MALEATE 10 MG TAB PO SCH ×2 (08:15→21:03)
[2016-10-25] MEDS: ARIPiprazole 15 MG TAB (AbiLIFY) PO SCH (08:15)
[2016-10-25] MEDS: NYSTATIN 100,000 UNITS/GM TOPICAL PWD 15 GM TOP SCH ×2 (08:16→21:03)
--- NOTE | 2016-10-25 12:20 | IPNPDOC ---
Text Note Date of Service The patient was seen on 10/25/16. NOTE Subjective: Patient seen and examined at bedside. Patient is breathing better however still on 6L NC O2. He also admits to less swelling in lower extremities. Patient stated swelling in abdomen has resolved too. Denies any chest pain, abdominal pain, nausea, vomiting, diarrhea, constipation, blood in urine or stool. Telemetry shows patient was in sinus rhythm. Denies any other current new complaints. Objective: Vitals: (See below) General: Patient is a morbidly obese elderly male laying comfortably in bed, AAOx3, not in apparent distress, with head elevated at 30 degrees HEENT: Normal cephalic atraumatic, Extraocular motion intact, pupil equal round and reactive to light, mucosal membrane moist, neck supple, no neck lymphadenopathy Cardio: RRR, Normal S1, S2, no murmurs, Positive JVD Pulm: Clear to auscultation bilaterally Abdomen: + bowel sounds, soft, none tender, none distended, no peritoneal signs , no ecchymosis, no masses that were palpable Ext: 1+ pitting edema b/l lower extremity Skin: Warm and dry Neuro: Cranial Nerve 2 through 12 intact, No focal neurological deficit Labs ( See below) Most significantly: WBC 13.2, hgb of 8, plt 517, Na of 132, GRF of 29, Urine culture pending. Images/Procedures: None Assessment and Plan: 71-year-old male who was transferred from [facility] with multiple comorbidities, was initially thought to have a chronic obstructive pulmonary disease (COPD) exacerbation and had Levaquin and Solu-Medrol. However, was later believed to be congestive heart failure (CHF) exacerbation, was transferred to our care due to new onset of atrial fibrillation in addition to the patient's chronic disease and chronic obstructive pulmonary disease (COPD) exacerbation, presented with: 1. Shortness of breath, likely secondary to pulmonary edema from decompensated congestive heart failure (CHF), Cardiology Dr. Cardenas has been consulted. We appreciate his help. Telemetry shows Sinus rhythm. Patient had normal LVEF in the past. Continue current duel AV blocking agents and ACEI. Dr. Cardenas recommended to consider to add sprionolactone if BP become uncontrolled. Continue to diuresis patient with lasix with negative 1.5 L, and diet with 1.5 fluid restriction with no added salt. Switched patient to PO lasix for tomorrow. 2. Severe iron deficiency anemia. With Ferritin of only 5. Started patient on Ferrous Gluconate 324 mg tid with meals and Vitamin C. No IV iron due to trying to limit side effects from the transfusion while patient is having possible afib and decompensated HF. Will investigate reason for iron def anemia with fecal occult and rule out celiac with TTG IgA. 3. Leukocytosis. Still elevated but improved, possibly due to stress versus steroid usage. Will continue to trend. Currently, the patient does not have a fever. 4. Chronic kidney disease stage III, appears to be baseline, slightly worsening likely from diuresis. Continue to monitor. 5. Severe chronic obstructive pulmonary disease (COPD) with 4.5 liters of oxygen at home, continue to titrate oxygen between 88 and 92%. Currently on 6 L NC O2. 6. Hypertension. Continue beta sy with previously mentioned enalapril 20 mg by mouth twice a day and continue to monitor the patient. 7. Hyperlipidemia. Continue pravastatin 40 mg by mouth at bedtime (q.h.s.) 8. Obstructive sleep apnea, noncompliant with CPAP at night. Will place the patient on obstructive sleep apnea protocol and continue the patient on nasal cannula throughout the night. 9. History of gastroesophageal reflux disease (GERD). Continue proton pump inhibitor (PPI). 10. History of anxiety. Continue home medication with Zoloft and also as needed Ativan. 11. History of gout. Continue allopurinol. 12. Chronic pains. Will continue the patient on Tylenol. DVT prophylaxis: Hep subcu 5000u q8H Fluid, Electrolytes, Nutrition: Consistent carbohydrate diet, 1.5 L fluid restriction, no added salt Code: No advanced directive Disposition: Possible discharge patient tomorrow if Dr. Cardenas agrees. Continue to follow Dr. Cardenas's recommendation. Patient discussed with attending Dr. Biggs. Ruddy BALLARD, I+O Ruddy BALLARD, I+O Laboratory Tests 10/25/16 05:59 Red Blood Count 4.24 L, Mean Corpuscular Volume 69.7 L, Mean Corpuscular Hemoglobin 19.2 L, Mean Corpuscular Hemoglobin Concent 27.6 L, Red Cell Distribution Width 19.2 H, Neutrophils (%) (Auto) 72.8 H, Lymphocytes (%) (Auto ) 14.9 L, Monocytes (%) (Auto) 5.8 H, Eosinophils (%) (Auto) 5.1 H, Basophils (% ) (Auto) 0.1, Neutrophils # (Auto) 7.5, Lymphocytes # (Auto) 1.6, Monocytes # ( Auto) 0.6, Eosinophils # (Auto) 0.5, Basophils # (Auto) 0.0, Calcium Level 8.6 L , Aspartate Amino Transf (AST/SGOT) 17, Alanine Aminotransferase (ALT/SGPT) 39, Alkaline Phosphatase 76, Total Bilirubin 0.4, Total Protein 6.3 L, Albumin 2.7 L Vital Signs Date Time Temp Pulse Resp B/P (MAP) Pulse Ox O2 Delivery O2 Flow Rate FiO2 10/25/16 09:00 Nasal Cannula 6.0 10/25/16 08:15 131/60 10/25/16 08:15 63 10/25/16 06:00 98.1 18 93 10/24/16 16:00 35 I&O- Last 24 Hours up to 6 AM 10/25/16 06:00 Intake Total 1260 ml Output Total 3050 ml Balance -1790 ml GME ATTESTATION GME ATTESTATION My preceptor for this patient encounter was physically present in the building during the encounter and was fully available. As needed, all aspects of the patient interview, examination, medical decision making process, and medical care plan development were reviewed and approved by the preceptor. Preceptor is aware and concurs with the plan as stated in the body of this note and will attest to such by his/her cosignature. CLARIBEL WOMACK DO Oct 25, 2016 12:20
[2016-10-25 14:00] VITALS: BP 133/62
[2016-10-25] MEDS: PRAVASTATIN 20 MG TAB PO SCH (21:03)
[2016-10-25 22:00] VITALS: BP 128/61
[2016-10-26 06:00] VITALS: BP 159/70
[2016-10-26] MEDS ORDERED: LevoFLOXacin 250 MG TABLET PO SCH (06:00)
[2016-10-26 06:01] LABS: ADD MORPHOLOGY? YES; BASO % 0.1 % (0.0-1.0); EOS # 0.8 K/mm3 (0.0-0.50); EOS % 7.7 % (0.0-3.0); LARGE UNSTAINED CELL # 0.1 K/mm3 (0.0-0.4); LYMPH # 1.4 K/mm3 (1.5-4.5); LYMPH % 12.2 % (24.0-44.0); MEAN CORPUSCULAR HEMOGLOBIN 19.8 pg (27.0-33.0); MEAN CORPUSCULAR HGB CONC 28.7 g/dl (32.0-36.5); MEAN CORPUSCULAR VOLUME 69.1 fl (80.0-96.0); MONO # 0.5 K/mm3 (0.0-0.8); MONO % 4.8 % (0.0-5.0); NEUTROPHILS # 7.9 K/mm3 (1.8-7.7); NEUTROPHILS % 74.2 % (36.0-66.0); PLATELET COUNT, AUTOMATED 460 k/mm3 (150-450); RED CELL DISTRIBUTION WIDTH 19.6 % (11.5-14.5); WHITE BLOOD COUNT 10.6 K/mm3 (4.0-10.0)
[2016-10-26] MEDS: HEPARIN SOD (PORCINE) 5000 UNITS/ML VIAL SQ SCH ×3 (06:09→20:50)
[2016-10-26 06:16] LABS: ALBUMIN 2.6 GM/DL (3.2-5.2); ALBUMIN/GLOBULIN RATIO 0.76 (1.00-1.93); BILIRUBIN,TOTAL 0.4 MG/DL (0.2-1.0); CALCIUM LEVEL 8.6 MG/DL (8.8-10.2); CREATININE FOR GFR 2.32 MG/DL (0.70-1.30); GLOMERULAR FILTRATION RATE 29.8 (>42); MAGNESIUM LEVEL 2.6 MG/DL (1.8-2.4); POTASSIUM SERUM 3.7 MEQ/L (3.5-5.1)
[2016-10-26 06:56] LABS: ANISOCYTOSIS 2+; HYPOCHROMASIA 2+
[2016-10-26 06:59] LABS: MICROCYTOSIS 2+
[2016-10-26] MEDS: SYMBICORT 80/4.5MCG INHALER 6GM INH SCH ×2 (07:29→19:32)
[2016-10-26] MEDS: HumaLOG INSULIN (NovoLOG) PER UNIT SC SCH ×4 (07:58→20:52)
[2016-10-26] MEDS: OMEPRAZOLE 20 MG CAP PO SCH (07:58)
[2016-10-26] MEDS: FERROUS GLUCONATE 324 MG TAB PO SCH ×3 (07:59→18:03)
[2016-10-26] MEDS: ALLOPURINOL 100 MG TAB PO SCH ×2 (07:59→20:50)
[2016-10-26] MEDS: SERTRALINE HCL 50 MG TAB PO SCH (07:59)
[2016-10-26] MEDS: ASCORBIC ACID 500 MG TAB PO SCH ×2 (07:59→20:50)
[2016-10-26] MEDS: OMEGA-3 1050MG CAPSULE PO SCH (07:59)
[2016-10-26] MEDS: ENALAPRIL MALEATE 10 MG TAB PO SCH ×2 (08:00→20:51)
[2016-10-26] MEDS: diltiaZEM **CD** 180 MG CAP PO SCH (08:00)
[2016-10-26] MEDS: CARVedilol 12.5 MG TAB PO SCH ×2 (08:01→20:51)
[2016-10-26] MEDS: FUROSEMIDE 40 MG/4 ML VIAL (J1940) IV SCH (08:01)
[2016-10-26] MEDS: NYSTATIN 100,000 UNITS/GM TOPICAL PWD 15 GM TOP SCH ×2 (08:01→20:52)
[2016-10-26] MEDS: ARIPiprazole 15 MG TAB (AbiLIFY) PO SCH (08:01)
[2016-10-26 08:35] VITALS: BP 134/65
[2016-10-26 13:45] VITALS: BP 130/60
[2016-10-26 14:00] VITALS: BP 130/60
--- NOTE | 2016-10-26 14:03 | IPN ---
DATE: 10/26/2016 Mr. Corea is feeling much better. He feels that there has been substantial improvement. He is not dyspneic at rest, and his peripheral edema is almost completely resolved. He denies any chest pain or sensation of palpitations. Vital signs reveal blood pressure 134/65. Heart rate has been in 60s and 70s. He is afebrile. Saturation is 93% on 4.5 liters of oxygen by nasal cannula. Fluid balance yesterday was about 2700 mL negative. Weight is documented at 139.7 kg, which represents about 8 kg weight loss since admission. He is alert, oriented, and appropriate. His jugular venous pulse (JVP) is not elevated above the clavicles in sitting position. Lungs are clear to auscultation. Heart exam reveals somewhat muffled heart sound corresponding to his morbid obesity. I do not appreciate any gallop or rub. Abdomen is morbidly obese but soft. I do not appreciate any evidence for ascites based on physical exam. There is about 1+ peripheral edema, apparently dramatically improved since past. Neurologically he is alert and oriented. I did not do any formal testing of his strengths. LABORATORY: CBC reveals hemoglobin 7.9, hematocrit 27, platelet count 460,000, WBC count 10.6. Basic metabolic panel: Potassium 3.7, BUN 62, creatinine 2.3, GFR 30, and glucose 129. ASSESSMENT AND PLAN:: Mr. Liao is a 71-year-old man who presented with acutely exacerbated chronic diastolic congestive heart failure in setting of morbid obesity and sleep apnea. There has been good diuretic response. Simultaneously, his renal function remains approximately stable. I believe that at this point we can discontinue IV diuretics and transition him to oral loop diuretics. Very likely the obesity and sleep apnea are the underlying mechanisms. He does admit that he has not been using continuous positive airway pressure (CPAP) at home, but now when he has been able to tolerate in the hospital, he promises that he will be better with his compliance. I am hoping that he will be able to be discharged home within a few days. Somewhat separate, but certainly connected, issue is that of severe anemia. He is iron deficient, and hemoglobin is below 8. If there should be any further decline in hemoglobin, and I would advocate to give him blood transfusion. Otherwise, he was started on oral supplementation. If that should not be effective within a few weeks, then even intravenous (IV) iron should be considered. MTDD
--- NOTE | 2016-10-26 18:00 | IPNPDOC ---
Text Note Date of Service The patient was seen on 10/26/16. NOTE Subjective: Patient seen and examined at bedside. Patient is breathing better however still on 4.5L NC O2, the same as at home. Denies any chest pain, abdominal pain, nausea, vomiting, diarrhea, constipation, blood in urine or stool. Telemetry shows patient was in sinus rhythm. Denies any other current new complaints. Objective: Vitals: (See below) General: Patient is a morbidly obese elderly male laying comfortably in bed, AAOx3, not in apparent distress, with head elevated at 30 degrees HEENT: Normal cephalic atraumatic, Extraocular motion intact, pupil equal round and reactive to light, mucosal membrane moist, neck supple, no neck lymphadenopathy Cardio: RRR, 2/6 systolic murmur, normal S2, No JVD Pulm: Clear to auscultation bilaterally Abdomen: + bowel sounds, soft, none tender, none distended, no peritoneal signs , no ecchymosis, no masses that were palpable Ext: 1+ pitting edema b/l lower extremity Skin: Warm and dry Neuro: Cranial Nerve 2 through 12 intact, No focal neurological deficit Labs ( See below) Most significantly: WBC 10.6, hgb of 7.9, plt 460, Na of 140, GRF of 29.8, Urine culture pending. Images/Procedures: None Assessment and Plan: 71-year-old male who was transferred from [facility] with multiple comorbidities, was initially thought to have a chronic obstructive pulmonary disease (COPD) exacerbation and had Levaquin and Solu-Medrol. However, was later believed to be congestive heart failure (CHF) exacerbation, was transferred to our care due to what was thought to be new onset of atrial fibrillation in addition to the patient's chronic disease and chronic obstructive pulmonary disease (COPD) exacerbation, presented with: 1. Shortness of breath, likely secondary to pulmonary edema from decompensated CHF vs COPD exacerbation Cardiology Dr. Cardenas and Dr. Hairston has been consulted. We appreciate their help. Telemetry shows Sinus rhythm. Continue Symbicort and DuoNeb. Patient had normal LVEF in the past. Continue current duel AV blocking agents and ACEI. Dr. Cardenas recommended to consider to add sprionolactone if BP become uncontrolled. Continue to diuresis patient with lasix with negative 1.5 L, and diet with 1.5 fluid restriction with no added salt. Dr. Hairston switched patient to Torsemide 40 mg PO daily. 2. Severe iron deficiency anemia. With Ferritin of only 5. Started patient on Ferrous Gluconate 324 mg tid with meals and Vitamin C. No IV iron due to trying to limit side effects from the transfusion while patient is having possible afib and decompensated HF. Will investigate reason for iron def anemia with fecal occult and rule out celiac with TTG IgA. Will transfuse him if his hgb is significantly less than 8. 3. Leukocytosis. Still elevated but improved, possibly due to stress versus steroid usage. Will continue to trend. Currently, the patient does not have a fever. 4. Chronic kidney disease stage III, appears to be baseline, slightly worsening likely from diuresis. Continue to monitor. 5. Severe chronic obstructive pulmonary disease (COPD) with 4.5 liters of oxygen at home, continue to titrate oxygen between 88 and 92%. Currently on 4.5 L NC O2. 6. Hypertension. Continue beta sy with previously mentioned enalapril 20 mg by mouth twice a day and continue to monitor the patient. 7. Hyperlipidemia. Continue pravastatin 40 mg by mouth at bedtime (q.h.s.) 8. Obstructive sleep apnea, noncompliant with CPAP at night. Will place the patient on obstructive sleep apnea protocol and continue the patient on nasal cannula throughout the night. 9. History of gastroesophageal reflux disease (GERD). Continue proton pump inhibitor (PPI). 10. History of anxiety. Continue home medication with Zoloft and also as needed Ativan. 11. History of gout. Continue allopurinol. 12. Chronic pains. Will continue the patient on Tylenol. DVT prophylaxis: Hep subcu 5000u q8H Fluid, Electrolytes, Nutrition: Consistent carbohydrate diet, 1.5 L fluid restriction, no added salt Code: No advanced directive Disposition: Considering to discharge patient on Friday. Continue to follow Dr. Hairston's recommendation. Patient discussed with attending Dr. Biggs. Ruddy BALLARD, I+O Ruddy BALLARD, I+O Laboratory Tests 10/26/16 05:09 Red Blood Count 4.00 L, Mean Corpuscular Volume 69.1 L, Mean Corpuscular Hemoglobin 19.8 L, Mean Corpuscular Hemoglobin Concent 28.7 L, Red Cell Distribution Width 19.6 H, Neutrophils (%) (Auto) 74.2 H, Lymphocytes (%) (Auto ) 12.2 L, Monocytes (%) (Auto) 4.8, Eosinophils (%) (Auto) 7.7 H, Basophils (%) (Auto) 0.1, Neutrophils # (Auto) 7.9 H, Lymphocytes # (Auto) 1.4 L, Monocytes # (Auto) 0.5, Eosinophils # (Auto) 0.8 H, Basophils # (Auto) 0.0, Calcium Level 8.6 L, Aspartate Amino Transf (AST/SGOT) 14 L, Alanine Aminotransferase (ALT/ SGPT) 36, Alkaline Phosphatase 71, Total Bilirubin 0.4, Total Protein 6.0 L, Albumin 2.6 L Vital Signs Date Time Temp Pulse Resp B/P (MAP) Pulse Ox O2 Delivery O2 Flow Rate FiO2 10/26/16 14:00 98.3 64 20 130/60 (83) 91 Nasal Cannula 4.5 10/24/16 16:00 35 I&O- Last 24 Hours up to 6 AM 10/26/16 06:00 Intake Total 1440 ml Output Total 4400 ml Balance -2960 ml GME ATTESTATION E ATTESTATION My preceptor for this patient encounter was physically present in the building during the encounter and was fully available. As needed, all aspects of the patient interview, examination, medical decision making process, and medical care plan development were reviewed and approved by the preceptor. Preceptor is aware and concurs with the plan as stated in the body of this note and will attest to such by his/her cosignature. CLARIBEL WOMACK DO Oct 26, 2016 18:00
[2016-10-26 19:35] VITALS: O2SAT 93
[2016-10-26] MEDS: PRAVASTATIN 20 MG TAB PO SCH (20:50)
[2016-10-26 22:00] VITALS: BP 148/66
[2016-10-27 05:38] LABS: ADD MORPHOLOGY? YES; BASO % 0.2 % (0.0-1.0); EOS # 0.9 K/mm3 (0.0-0.50); EOS % 8.7 % (0.0-3.0); LARGE UNSTAINED CELL # 0.1 K/mm3 (0.0-0.4); LARGE UNSTAINED CELL % 1.1 % (0.0-4.0); LYMPH # 1.5 K/mm3 (1.5-4.5); LYMPH % 13.7 % (24.0-44.0); MEAN CORPUSCULAR HEMOGLOBIN 19.7 pg (27.0-33.0); MEAN CORPUSCULAR HGB CONC 28.2 g/dl (32.0-36.5); MEAN CORPUSCULAR VOLUME 69.9 fl (80.0-96.0); MONO # 0.4 K/mm3 (0.0-0.8); MONO % 4.2 % (0.0-5.0); NEUTROPHILS # 7.2 K/mm3 (1.8-7.7); NEUTROPHILS % 72.1 % (36.0-66.0); PLATELET COUNT, AUTOMATED 447 k/mm3 (150-450); RED CELL DISTRIBUTION WIDTH 20.7 % (11.5-14.5); WHITE BLOOD COUNT 9.9 K/mm3 (4.0-10.0)
[2016-10-27 05:58] LABS: ALBUMIN 2.7 GM/DL (3.2-5.2); ALBUMIN/GLOBULIN RATIO 0.77 (1.00-1.93); BILIRUBIN,TOTAL 0.4 MG/DL (0.2-1.0); CALCIUM LEVEL 8.3 MG/DL (8.8-10.2); CREATININE FOR GFR 2.34 MG/DL (0.70-1.30); GLOMERULAR FILTRATION RATE 29.5 (>42); MAGNESIUM LEVEL 2.6 MG/DL (1.8-2.4); POTASSIUM SERUM 3.8 MEQ/L (3.5-5.1); TOTAL PROTEIN 6.2 GM/DL (6.4-8.2)
[2016-10-27 06:00] VITALS: BP 143/64
[2016-10-27 06:47] LABS: HYPOCHROMASIA 2+
[2016-10-27 06:48] LABS: MICROCYTOSIS 2+
[2016-10-27 06:50] LABS: ANISOCYTOSIS 3+
[2016-10-27] MEDS: HEPARIN SOD (PORCINE) 5000 UNITS/ML VIAL SQ SCH ×3 (06:54→22:00)
[2016-10-27] MEDS: SYMBICORT 80/4.5MCG INHALER 6GM INH SCH ×2 (07:25→19:48)
[2016-10-27] MEDS: HumaLOG INSULIN (NovoLOG) PER UNIT SC SCH ×4 (08:04→20:59)
[2016-10-27] MEDS: FERROUS GLUCONATE 324 MG TAB PO SCH ×3 (08:04→17:37)
[2016-10-27] MEDS: SERTRALINE HCL 50 MG TAB PO SCH (08:05)
[2016-10-27] MEDS: CARVedilol 12.5 MG TAB PO SCH ×2 (08:05→20:58)
[2016-10-27] MEDS: OMEPRAZOLE 20 MG CAP PO SCH (08:05)
[2016-10-27] MEDS: TORSEMIDE 20 MG TAB PO SCH (08:06)
[2016-10-27] MEDS: ENALAPRIL MALEATE 10 MG TAB PO SCH ×2 (08:06→20:58)
[2016-10-27] MEDS: diltiaZEM **CD** 180 MG CAP PO SCH (08:06)
[2016-10-27] MEDS: ALLOPURINOL 100 MG TAB PO SCH ×2 (08:07→20:58)
[2016-10-27] MEDS: ARIPiprazole 15 MG TAB (AbiLIFY) PO SCH (08:07)
[2016-10-27] MEDS: ASCORBIC ACID 500 MG TAB PO SCH ×2 (08:07→20:59)
[2016-10-27] MEDS: NYSTATIN 100,000 UNITS/GM TOPICAL PWD 15 GM TOP SCH ×2 (08:07→20:59)
[2016-10-27] MEDS: OMEGA-3 1050MG CAPSULE PO SCH (08:07)
--- NOTE | 2016-10-27 09:34 | ECHO ---
DATE OF PROCEDURE: 10/23/2016 REASON FOR THE ECHOCARDIOGRAM: Heart failure, unspecified. 2D MEASUREMENT: IVS - 1.3 cm LV - 4.2 cm LVPW - 1.3 cm LA - 3.3 cm Aorta - 3.7 cm IVC - 2.2 cm DOPPLER MEASUREMENT: Peak velocity across the aortic valve - 1.8 m/s Peak velocity across the LVOT - 1.2 m/s Mitral E - 0.6, Mitral A - 0.79 with a ratio of 0.8 Maximum tricuspid valve velocity - 3.1 m/s 2D COMMENTS: 1. Mildly increased left ventricle wall thickness was normal left ventricular size and a normal global left ventricular systolic function. The estimated left ventricular systolic ejection fraction is 55-60%. 2. Normal left atrium. Normal right atrium and right ventricle. 3. The atrial septum appear to be normal without evidence of defect or shunt. . 4. Borderline enlarged aortic root at 3.7 cm. 5. Trace pericardial effusion noted, no evidence of cardiac tamponade. 6. Minimally calcified aortic valve with normal leaflet excursion. Mildly calcified mitral annulus with normal anterior mitral valve leaflet motion. Normal tricuspid valve and pulmonic valve. The proximal pulmonary artery branches were not well visualized. 7. The inferior venal cava was mildly enlarged, central venous pressure mildly elevated. DOPPLER: It detects mild aortic regurgitation, mild mitral regurgitation, and mild tricuspid regurgitation. The calculated pulmonary artery systolic pressure varies between 40 to 50 mmHg. Abnormal relaxation pattern was noted across the mitral valve leaflets as well as mitral valve annulus consistent with grade 1 left ventricular diastolic dysfunction. IMPRESSION: 1. Normal global left ventricular systolic function with mild concentric left ventricular hypertrophy. There are features of left ventricular diastolic dysfunction, grade 1. 2. Aortic valve sclerosis with mild aortic regurgitation but trivial aortic stenosis. 3. Mitral annulus calcification with mild mitral regurgitation. 4. Mild tricuspid regurgitation with moderate to pulmonary hypertension. 5. There are features consistent with elevated central venous pressure. 6. Trace pericardial effusion noted, no evidence of cardiac tamponade. [facility]
--- NOTE | 2016-10-27 13:46 | IPN ---
DATE: 10/27/2016 Mr. Corea tells me that he feels about the same as yesterday and overall much improved since admission. He has no specific complaints. He has not done much walking other than to the bathroom from his bed, but that does not seem to make him short of breath. He was sleeping with continuous positive airway pressure (CPAP) last night again and tolerated it well. VITAL SIGNS: Blood pressure 143/64, heart rate from 60s to 70s. He is afebrile. Saturation 92% on four liters of oxygen by nasal cannula. Fluid balance yesterday was again about 3.2 liters negative and today, he already made about a liter of urine. Weight though by scales went up somewhat surprisingly to 142 kg. He is alert, oriented appropriate. His jugular venous pulse (JVP) does not seem elevated but with his body habitus it is difficult to estimate. Lungs are clear to auscultation with good air movement. Heart examination reveals a regular rhythm. I do not appreciate any gallop or rub. Abdomen is morbidly obese but soft. There is no significant peripheral edema. Neurologically, besides generalized weakness, he is intact. LABORATORY DATA: Potassium 3.8, BUN 63, creatinine 2.3 for a GFR of 30, glucose 115. CBC: Hemoglobin 7.7, hematocrit 27, and platelet count 447,000. ASSESSMENT AND PLAN: Mr. Corea is a 71-year-old man who has morbid obesity, sleep apnea and most prominently right-sided congestive heart failure. He responded favorably to IV diuretics and is probably close to euvolemic state. It looks like he has still very reasonable diuretic response to torsemide and his creatinine remains the same. From a hemodynamic perspective, I believe he can be discharged home tomorrow with emphasis on low-sodium diet, fluid restrictions and continuous positive airway pressure (CPAP) compliance. I had a talk with him and his family on this topic. The second issue is that of anemia. He received IV iron which I think is very reasonable but his hemoglobin is still low. Provided he drops any further, I would have a low threshold to transfuse him before discharge. Otherwise, if the hemoglobin is the same or increased, I think that he can be discharged home tomorrow. He follows with Dr. Cardenas closely in [place] office. I am going to sign off. Please contact me again if any further assistance is desired.
[2016-10-27 14:00] VITALS: BP 116/71
--- NOTE | 2016-10-27 14:55 | REP ---
REASON: Renal failure. Comparison ultrasound: None. Right kidney measures 13.0 x 6.7 x 5.4 cm and the left kidney measures 10.5 x 4.8 x 5.2 cm. The renal cortices are echogenic and there is less than optimal cortical medullary differentiation. There are no solid masses on the right. On the left, there are two anechoic structures or nearly anechoic structures, one in the superior pole meauring 1.2 x 1.1 x 1.3 cm and the other in the inferior pole measuring 2.3 x 1.8 x 2.7 cm. Both exhibit posterior wall enhancement and increased through transmission. IMPRESSION: Findings, as described above, consistent with medical renal disease. There are left renal cysts as described above. Signed by Nelson Heller DO 10/27/2016 03:14 P
[2016-10-27] MEDS ORDERED: IRON SUCROSE 25 MG in NS 50 ML IV ONE (15:00)
[2016-10-27] MEDS ORDERED: IRON SUCROSE 375 MG in NS 250 ML IV ONE (16:00)
--- NOTE | 2016-10-27 19:47 | IPNPDOC ---
Text Note Date of Service The patient was seen on 10/27/16. NOTE Text Note Date of Service The patient was seen on 10/27/16. NOTE Subjective: Patient seen and examined at bedside. Patient states he is feeling much better and feels he is at his baseline. No new medical complaints. Objective: Vitals: (See below) General: NAD, sitting comfortably in chair HEENT: NC/AT, EOMI, PERRL, MMM Cardio: RRR, 2/6 systolic murmur Lungs: CTA B/L Abdomen: +BS, soft, NT, obese Ext: trace peripheral pitting edema b/l lower extremity Skin: Warm and dry Labs ( See below). Images/Procedures: None Assessment and Plan: 71-year-old male who was transferred from [facility] with multiple comorbidities, was initially thought to have a chronic obstructive pulmonary disease (COPD) exacerbation and had Levaquin and Solu-Medrol. However, was later believed to be congestive heart failure (CHF) exacerbation, was transferred to our care due to what was thought to be new onset of atrial fibrillation in addition to the patient's chronic disease and chronic obstructive pulmonary disease (COPD) exacerbation, presented with: 1. Decompensated heart failure - echo shows grade 1 diastolic dysfunction - grossly euvolemic today - grossly compensated - has been transition to PO diuretics - cardiology consultation appreciated - fluid restriction with no added salt. 2. Anemia. - severe iron deficiency complicated with renal disease - likely start parenteral iron replacement therapy - given chronic kidney disease - nephrology consultation pending With Ferritin of only 5. Started patient on Ferrous Gluconate 324 mg tid with meals and Vitamin C. 3. Leukocytosis - likely secondary to steroids - no obvious source of infection 4. Chronic kidney disease - renal ultrasound showing medical disease with cysts - nephrology consultation pending - improving with diuresis 5. Chronic hypoxic respiratory failure - secondary to severe chronic obstructive pulmonary disease (COPD) - requires 4.5 liters of oxygen via nasal cannula at baseline - continue to titrate oxygen to maintain O2 sats between 88 and 92%. 6. Hypertension - continue beta sy and ACEI 7. Hyperlipidemia - continue pravastatin 40 mg by mouth at bedtime (q.h.s.) 8. Obstructive sleep apnea - noncompliant with CPAP at night - continue obstructive sleep apnea protocol - continue supplemental oxygen at night 9. History of gastroesophageal reflux disease (GERD). Continue proton pump inhibitor (PPI). 10. History of anxiety. Continue home medication with Zoloft and also as needed Ativan. 11. History of gout. Continue allopurinol. 12. Chronic pains. Will continue the patient on Tylenol. DVT prophylaxis: Hep subcu 5000u q8H Fluid, Electrolytes, Nutrition: Consistent carbohydrate diet, 1.5 L fluid restriction, no added salt Code: No advanced directive Disposition: Anticipating discharge in 24 hours - home with services. VS,Ruddy, I+O VS, Ruddy, I+O Laboratory Tests 10/27/16 05:14 Red Blood Count 3.90 L, Mean Corpuscular Volume 69.9 L, Mean Corpuscular Hemoglobin 19.7 L, Mean Corpuscular Hemoglobin Concent 28.2 L, Red Cell Distribution Width 20.7 H, Neutrophils (%) (Auto) 72.1 H, Lymphocytes (%) (Auto ) 13.7 L, Monocytes (%) (Auto) 4.2, Eosinophils (%) (Auto) 8.7 H, Basophils (%) (Auto) 0.2, Neutrophils # (Auto) 7.2, Lymphocytes # (Auto) 1.5, Monocytes # ( Auto) 0.4, Eosinophils # (Auto) 0.9 H, Basophils # (Auto) 0.0, Calcium Level 8.3 L, Aspartate Amino Transf (AST/SGOT) 11 L, Alanine Aminotransferase (ALT/ SGPT) 35, Alkaline Phosphatase 71, Total Bilirubin 0.4, Total Protein 6.2 L, Albumin 2.7 L Vital Signs Date Time Temp Pulse Resp B/P (MAP) Pulse Ox O2 Delivery O2 Flow Rate FiO2 10/27/16 14:00 97.4 63 18 116/71 (86) 94 Nasal Cannula 4.5 10/24/16 16:00 35 I&O- Last 24 Hours up to 6 AM 10/27/16 06:00 Intake Total 600 ml Output Total 3250 ml Balance -2650 ml DENZEL BRAUN MD Oct 27, 2016 19:47
[2016-10-27 19:49] VITALS: O2SAT 92
[2016-10-27] MEDS: PRAVASTATIN 20 MG TAB PO SCH (20:57)
--- NOTE | 2016-10-27 21:02 | CR ---
DATE OF CONSULTATION: 10/27/2016 CONSULTATION REPORT FOR: Seth Biggs MD REASON FOR CONSULTATION: Acute renal failure, chronic kidney disease and worsening anemia. HISTORY OF PRESENT ILLNESS: Mr. Liao is a 71-year-old morbidly obese gentleman with multiple chronic medical problems including a history of obstructive sleep apnea, morbid obesity, diastolic congestive heart failure, type 2 diabetes, hypertension and chronic kidney disease. He was admitted to [facility] on 10/22/2016, due to worsening shortness of breath. He was felt to be in decompensated congestive heart failure. Since admission he has been diuresed and was also treated initially for his CPAP and obstructive sleep apnea. He also has history of COPD and was given steroids and nebulizers. Since admission his condition has improved significantly and dyspnea and peripheral edema has resolved. His weight is down by about 8 kg. Intake and output records show a negative fluid balance of almost 12 liters. His hemoglobin today is 7.7 and hematocrit 27.2. His BUN is 63 and creatinine 2.34. A nephrology consultation was requested this morning and the patient is seen this morning. PAST MEDICAL AND SURGICAL HISTORY: Significant for: 1. Morbid obesity. 2. Longstanding diabetes. 3. Hypertension. 4. Diastolic congestive heart failure. 5. History of gout. 6. History of obstructive sleep apnea. 7. History of COPD. 8. History of stage III of chronic kidney disease. 9. History of gastroesophageal reflux disease. 10. History of anxiety. 11. History of chronic back pain. Past surgical history is unremarkable. ALLERGIES: He has no known drug allergies. MEDICATIONS: Home medications included: - DuoNebs one inhaler four times a day - allopurinol 100 mg twice a day - Abilify 50 mg daily - Symbicort 84.5 mcg two puffs twice a day - Carvedilol 25 mg twice a day - diltiazem 360 mg daily - enalapril 20 mg twice a day - fish oil 1000 mg daily - Lasix 40 mg twice a day which has been now switched to torsemide 40 mg daily - glipizide 10 mg daily - Incruse 62.5 mcg daily - Solu-Medrol has been now stopped - omeprazole 20 mg daily - pravastatin 40 mg daily - sertraline 50 mg daily PERSONAL AND SOCIAL HISTORY: The patient lives with his . He has history of smoking for about 40 years which he has already quit about 7 years ago. He drinks one to two beers a day. There is no history of recreational drug use. FAMILY HISTORY: Negative for end-stage renal disease. REVIEW OF SYSTEMS: The patient denies any fever or chills. He denies any dizziness or headache. Ears, nose and throat are unremarkable. Cardiovascular system is significant for diastolic congestive heart failure. He has improved dyspnea since admission. Denies any chest pain or palpitations. Respiratory system is significant for history of COPD and obstructive sleep apnea. There is no history of pleuritic type of chest pain. GI system is significant for history of gastroesophageal reflux disease. He denies any nausea or vomiting. There is no history of rectal bleeding. He does have severe iron deficiency anemia. Hematological system is significant for severe anemia. He is not on any chronic anticoagulation. Musculoskeletal system is significant for back pain, obesity and leg edema. Endocrine system is significant for type 2 diabetes. Psychosocial system is significant for anxiety. Neurological system is negative for seizures or stroke. PHYSICAL EXAMINATION: Morbidly obese gentleman sitting in the chair at the time of my visit this morning. Temperature is 97.8 degrees Fahrenheit, heart rate 70 per minute and respiratory rate 20 per minute. Blood pressure 143/64 mmHg and oxygen saturation 92%. Head is atraumatic. Neck is supple and without any obvious JVD. Trachea is midline. There are no abnormal cervical lymph nodes. Pupils equal and reactive to light and sclerae is anicteric. Heart sounds are distant but regular. There is no pericardial friction rub. Lungs have moderate bilateral air entry. There is no wheezing or rales. Abdomen is obese and nontender. Bowel sounds are present. Extremities have no cyanosis or clubbing. Skin has no rash or ulcers. Neurologically he is awake, alert and oriented times three. LABORATORY DATA: On the day of admission here his sodium was 131 and potassium 4.5. BUN 29 and creatinine 1.81. On 10/24/2016, his BUN was 54 and creatinine 2.38. Today his sodium is 142 and potassium 3.8. BUN 63 and creatinine 2.34. Iron level is 18, saturation 10% and ferritin is also 10. Total protein 6.2 and albumin 2.7. Urinalysis showed 2+ protein and 1+ blood. There were only 7 WBCs and 5 RBCs. IMAGING STUDIES: He had a chest x-ray done on 10/22/2016, which showed mild interstitial edema and cardiomegaly. He had a chest CT scan done on 10/22/2016, which showed small pleural effusion and possible basilar atelectasis versus infiltrates. PROBLEMS: 1. Acute renal failure superimposed on chronic kidney disease. The patient is known to have baseline at least stage III of chronic kidney disease. His creatinine was 1.8 on admission. He did have worsening renal function during this hospitalization most likely related to decompensated congestive heart failure and diuresis. He is currently not on any nephrotoxic medications. He does have JULES inhibitor which he has been taking even prior to admission and should continue with the same for long-term renal protection. His underlying chronic kidney disease is most likely related to diabetic nephropathy. 2. Acute on chronic diastolic congestive heart failure. The patient has been diuresed with IV Lasix and now has been switched to torsemide. His volume status seems to be clinically reasonably well-compensated. 3. Anemia with severe iron deficiency. Most likely the patient has chronic GI blood loss. His iron deficiency is severe and not likely to improve over short period of time with oral iron supplement. We will give him intravenous iron Venofer 400 mg one dose today. We will also check his stool for occult blood. I would strongly recommend an upper and lower endoscopy if it has not been done in the recent past. 4. Gout. The patient does have chronic gout and has been on allopurinol 200 mg daily. He has been diuresed aggressively recently and is at risk for acute flare of gout. His uric acid level will be checked tomorrow morning and we will make adjustments in his uric acid lowering therapy. 5. Secondary hyperparathyroidism. The patient is also at risk for secondary hyperparathyroidism due to his advanced underlying CKD and acute renal failure. Intact PTH level will be checked tomorrow morning. He is currently not on any vitamin D analogues. Thank you for involving me in the care of Mr. Liao. I will follow him along with you.
[2016-10-27 22:00] VITALS: BP 136/63
[2016-10-28 06:00] VITALS: BP 136/63
[2016-10-28] MEDS: HEPARIN SOD (PORCINE) 5000 UNITS/ML VIAL SQ SCH ×3 (06:00→20:25)
[2016-10-28 06:02] LABS: MEAN CORPUSCULAR HGB CONC 28.2 g/dl (32.0-36.5); MEAN CORPUSCULAR VOLUME 70.9 fl (80.0-96.0); PLATELET COUNT, AUTOMATED 434 k/mm3 (150-450); RED CELL DISTRIBUTION WIDTH 21.1 % (11.5-14.5); WHITE BLOOD COUNT 10.5 K/mm3 (4.0-10.0)
[2016-10-28 06:08] LABS: CALCIUM LEVEL 9.1 MG/DL (8.8-10.2); CREATININE FOR GFR 2.51 MG/DL (0.70-1.30); GLOMERULAR FILTRATION RATE 27.2 (>42); MAGNESIUM LEVEL 2.7 MG/DL (1.8-2.4); POTASSIUM SERUM 4.6 MEQ/L (3.5-5.1); URIC ACID 9.2 MG/DL (3.5-7.2)
[2016-10-28 06:28] LABS: DIFF SLIDE NUMBER 6
[2016-10-28 06:31] LABS: BASO % 0.3 % (0.0-1.0); EOS # 0.8 K/mm3 (0.0-0.50); EOS % 6.8 % (0.0-3.0); LARGE UNSTAINED CELL # 0.1 K/mm3 (0.0-0.4); LARGE UNSTAINED CELL % 0.8 % (0.0-4.0); LYMPH # 1.2 K/mm3 (1.5-4.5); LYMPH % 10.2 % (24.0-44.0); MONO # 0.6 K/mm3 (0.0-0.8); MONO % 5.6 % (0.0-5.0); NEUTROPHILS # 8.6 K/mm3 (1.8-7.7); NEUTROPHILS % 76.3 % (36.0-66.0)
[2016-10-28 06:36] LABS: ADD MANUAL DIFFER NO; ADD MORPHOLOGY? YES
[2016-10-28 07:01] LABS: ANISOCYTOSIS 2+; HYPOCHROMASIA 3+; MICROCYTOSIS 3+
[2016-10-28] MEDS: SYMBICORT 80/4.5MCG INHALER 6GM INH SCH ×2 (07:41→20:13)
[2016-10-28] MEDS: ARIPiprazole 15 MG TAB (AbiLIFY) PO SCH (08:10)
[2016-10-28] MEDS: HumaLOG INSULIN (NovoLOG) PER UNIT SC SCH ×4 (08:10→20:26)
[2016-10-28] MEDS: OMEPRAZOLE 20 MG CAP PO SCH (08:11)
[2016-10-28] MEDS: ASCORBIC ACID 500 MG TAB PO SCH ×2 (08:11→20:26)
[2016-10-28] MEDS: diltiaZEM **CD** 180 MG CAP PO SCH (08:11)
[2016-10-28] MEDS: FERROUS GLUCONATE 324 MG TAB PO SCH ×3 (08:11→17:33)
[2016-10-28] MEDS: ENALAPRIL MALEATE 10 MG TAB PO SCH ×2 (08:11→20:26)
[2016-10-28] MEDS: SERTRALINE HCL 50 MG TAB PO SCH (08:11)
[2016-10-28] MEDS: ALLOPURINOL 100 MG TAB PO SCH (08:11)
[2016-10-28] MEDS: OMEGA-3 1050MG CAPSULE PO SCH (08:11)
[2016-10-28] MEDS: TORSEMIDE 20 MG TAB PO SCH (08:12)
[2016-10-28] MEDS: CARVedilol 12.5 MG TAB PO SCH ×2 (08:12→20:26)
[2016-10-28] MEDS: NYSTATIN 100,000 UNITS/GM TOPICAL PWD 15 GM TOP SCH ×2 (08:12→20:26)
--- NOTE | 2016-10-28 11:42 | IPNPDOC ---
Text Note Date of Service The patient was seen on 10/28/16. NOTE Subjective: Patient seen and examined at bedside. Patient states he is feeling much better and feels he is at his baseline. Patient slept better with CPAP. Denies any chest pain, sob, abdominal pain, nausea, vomiting, diarrhea, constipation, problems with urination. Denies any other current new complaints. Objective: Vitals: (See below) General: NAD, sitting comfortably in chair HEENT: NC/AT, EOMI, PERRL, MMM Cardio: RRR, 2/6 systolic murmur Lungs: CTA B/L Abdomen: +BS, soft, NT, obese Ext: 1 + peripheral pitting edema b/l lower extremity extending to mid hayward Skin: Warm and dry Labs ( See below). Images/Procedures: None Assessment and Plan: 71-year-old male who was transferred from [facility] with multiple comorbidities, was initially thought to have a chronic obstructive pulmonary disease (COPD) exacerbation and had Levaquin and Solu-Medrol. However, was later believed to be congestive heart failure (CHF) exacerbation, was transferred to our care due to what was thought to be new onset of atrial fibrillation in addition to the patient's chronic disease and chronic obstructive pulmonary disease (COPD) exacerbation, presented with: 1. Decompensated heart failure - echo shows grade 1 diastolic dysfunction - grossly euvolemic today - grossly compensated - has been transition to PO diuretics - cardiology consultation appreciated - fluid restriction with no added salt. 2. Anemia. - severe iron deficiency complicated with renal disease - likely start parenteral iron replacement therapy - given chronic kidney disease - nephrology consultation and given IV iron With Ferritin of only 5. Started patient on Ferrous Gluconate 324 mg tid with meals and Vitamin C. - Likely will have EGD with Dr. Coffey tomorrow, patient had negative Cologuard 6 months ago 3. Leukocytosis - likely secondary to steroids - no obvious source of infection 4. Chronic kidney disease - renal ultrasound showing medical disease with cysts - nephrology consultation - improving with diuresis 5. Chronic hypoxic respiratory failure - secondary to severe chronic obstructive pulmonary disease (COPD) - requires 4.5 liters of oxygen via nasal cannula at baseline - continue to titrate oxygen to maintain O2 sats between 88 and 92%. 6. Hypertension - continue beta sy and ACEI 7. Hyperlipidemia - continue pravastatin 40 mg by mouth at bedtime (q.h.s.) 8. Obstructive sleep apnea - noncompliant with CPAP at night - continue obstructive sleep apnea protocol - continue supplemental oxygen at night 9. History of gastroesophageal reflux disease (GERD). Continue proton pump inhibitor (PPI). 10. History of anxiety. Continue home medication with Zoloft and also as needed Ativan. 11. History of gout. Continue allopurinol. 12. Chronic pains. Will continue the patient on Tylenol. DVT prophylaxis: Hep subcu 5000u q8H Fluid, Electrolytes, Nutrition: Consistent carbohydrate diet, 1.5 L fluid restriction, no added salt, NPO until midnight for EGD on 10/29/16 Code: No advanced directive Disposition: Anticipating discharge in 24 hours - home with services. Ruddy BALLARD, I+O Ruddy BALLARD, I+O Laboratory Tests 10/28/16 05:21 Red Blood Count 3.95 L, Mean Corpuscular Volume 70.9 L, Mean Corpuscular Hemoglobin 20.0 L, Mean Corpuscular Hemoglobin Concent 28.2 L, Red Cell Distribution Width 21.1 H, Neutrophils (%) (Auto) 76.3 H, Lymphocytes (%) (Auto ) 10.2 L, Monocytes (%) (Auto) 5.6 H, Eosinophils (%) (Auto) 6.8 H, Basophils (% ) (Auto) 0.3, Neutrophils # (Auto) 8.6 H, Lymphocytes # (Auto) 1.2 L, Monocytes # (Auto) 0.6, Eosinophils # (Auto) 0.8 H, Basophils # (Auto) 0.0, Calcium Level 9.1 Vital Signs Date Time Temp Pulse Resp B/P (MAP) Pulse Ox O2 Delivery O2 Flow Rate FiO2 10/28/16 10:00 61 98 Nasal Cannula 4.5 10/28/16 08:12 136/63 10/28/16 06:00 97.2 20 10/24/16 16:00 35 I&O- Last 24 Hours up to 6 AM 10/28/16 06:00 Intake Total 1371.25 ml Output Total 400 ml Balance 971.25 ml GME ATTESTATION GME ATTESTATION My preceptor for this patient encounter was physically present in the building during the encounter and was fully available. As needed, all aspects of the patient interview, examination, medical decision making process, and medical care plan development were reviewed and approved by the preceptor. Preceptor is aware and concurs with the plan as stated in the body of this note and will attest to such by his/her cosignature. CLARIBEL WOMACK DO Oct 28, 2016 11:42
[2016-10-28 11:44] LABS: PHOSPHORUS LEVEL 4.8 MG/DL (2.5-4.9)
[2016-10-28 14:00] VITALS: BP 115/55
--- NOTE | 2016-10-28 14:09 | IPN ---
DATE OF VISIT: 10/28/2016 Mr. Liao is seen this morning on his bedside. He is sitting in the chair at the time of my visit and feels well. He has chronic dyspnea and hypoxemia and has been on home oxygen. He was admitted with decompensated congestive heart failure and has been diuresed. He is still weak and not walking more than just to the bathroom. He reports that for 3 days, he had large amount of fresh blood in his stool due to hemorrhoids. However, he did not inform anybody. He had worsening anemia with severe iron deficiency. Yesterday, one dose of intravenous Venofer was given, which he tolerated well. On physical examination, temperature 97.2 degrees Fahrenheit, heart rate 68 per minute, and respiratory rate 20 per minute. Blood pressure 136/63 mmHg and oxygen saturation 98%. He is currently on 4.5 liters of oxygen. Intake and output records from yesterday are incomplete. He weighed 140.7 kg today. His head is atraumatic. Neck is supple, and jugular venous distention (JVD) is difficult to be assessed while he is sitting upright in the chair. Ears, nose, and throat are unremarkable. Heart examination reveals regular S1 and S2 with distant heart sounds. Lungs with moderate bilateral air entry. Abdomen: Soft, obese, and nontender. Bowel sounds are normal. Extremities: Without any cyanosis or clubbing. Skin has no rash or ulcers. Lower extremity edema is only mild. Neurologically, he is awake, alert, and oriented times three. Today's laboratories show WBC count 10.5, hemoglobin 7.9, and hematocrit 28.0. Platelets 434. Sodium 144 and potassium 4.6. BUN is 66 and creatinine 2.51. Uric acid level is 9.2, calcium 9.1, and magnesium 2.7. PROBLEMS: 1. Acute renal failure superimposed on chronic kidney disease. Slight worsening of serum creatinine is noticed since yesterday. He is currently on torsemide 40 mg daily, which will be continued. 2. Acute on chronic congestive heart failure. His volume status seems reasonably well-compensated, and current dose of diuretic will be continued. 3. Gout with elevated uric acid level. His uric acid is still significantly higher than the goal, and he remains at risk for acute flare of gout. I will stop his allopurinol and switch him to Uloric 80 mg daily. 4. Severe iron-deficiency anemia. The patient has been given one dose of Venofer 400 mg. He can receive another dose of Venofer in 2 weeks. At present, he will continue with oral iron supplement at 324 mg three times a day. We will hold off on Aranesp, as he has severe iron deficiency. 5. Hyperparathyroidism. His intact PTH level is only mildly elevated at 77.2. No intervention is indicated at this point.
[2016-10-28] MEDS: PRAVASTATIN 20 MG TAB PO SCH (20:25)
[2016-10-28 22:00] VITALS: BP 140/63
[2016-10-29] MEDS: HEPARIN SOD (PORCINE) 5000 UNITS/ML VIAL SQ SCH ×3 (05:48→20:18)
[2016-10-29 06:00] VITALS: BP 147/65
[2016-10-29 07:07] LABS: MEAN CORPUSCULAR HEMOGLOBIN 20.5 pg (27.0-33.0); MEAN CORPUSCULAR HGB CONC 28.8 g/dl (32.0-36.5); MEAN CORPUSCULAR VOLUME 71.1 fl (80.0-96.0); RED CELL DISTRIBUTION WIDTH 21.9 % (11.5-14.5); WHITE BLOOD COUNT 11.2 K/mm3 (4.0-10.0)
[2016-10-29 07:24] LABS: CALCIUM LEVEL 8.8 MG/DL (8.8-10.2); CREATININE FOR GFR 2.38 MG/DL (0.70-1.30); GLOMERULAR FILTRATION RATE 28.9 (>42); MAGNESIUM LEVEL 2.6 MG/DL (1.8-2.4); POTASSIUM SERUM 4.4 MEQ/L (3.5-5.1)
[2016-10-29] MEDS: HumaLOG INSULIN (NovoLOG) PER UNIT SC SCH ×4 (07:30→20:19)
[2016-10-29] MEDS: SYMBICORT 80/4.5MCG INHALER 6GM INH SCH ×2 (08:03→20:13)
[2016-10-29 08:04] VITALS: O2SAT 90
[2016-10-29] MEDS: SERTRALINE HCL 50 MG TAB PO SCH (08:40)
[2016-10-29] MEDS: OMEPRAZOLE 20 MG CAP PO SCH (08:40)
[2016-10-29] MEDS: ASCORBIC ACID 500 MG TAB PO SCH ×2 (08:40→20:19)
[2016-10-29] MEDS: OMEGA-3 1050MG CAPSULE PO SCH (08:40)
[2016-10-29] MEDS: diltiaZEM **CD** 180 MG CAP PO SCH (08:41)
[2016-10-29] MEDS: FEBUXOSTAT 40 MG TABLET (ULORIC) PO SCH (08:41)
[2016-10-29] MEDS: CARVedilol 12.5 MG TAB PO SCH ×2 (08:42→20:18)
[2016-10-29] MEDS: FERROUS GLUCONATE 324 MG TAB PO SCH ×3 (08:42→17:25)
[2016-10-29] MEDS: TORSEMIDE 20 MG TAB PO SCH (08:42)
[2016-10-29] MEDS: ENALAPRIL MALEATE 10 MG TAB PO SCH ×2 (08:42→20:19)
[2016-10-29] MEDS: ARIPiprazole 15 MG TAB (AbiLIFY) PO SCH (09:03)
[2016-10-29] MEDS: NYSTATIN 100,000 UNITS/GM TOPICAL PWD 15 GM TOP SCH ×2 (09:07→20:18)
[2016-10-29] MEDS ORDERED: E-Z-HD 98% w/w 340GM SUSP BTL As Ordered ONE (12:16)
[2016-10-29] MEDS ORDERED: E-Z-PAQUE 96% w/w SUSP 176GM BTL As Ordered ONE (12:16)
[2016-10-29] MEDS ORDERED: E-Z-GAS II EFFERVESCENT PACKET (SODIUM BICARB./CITRIC ACID/SIMETHICONE) As Ordered ONE (12:16)
--- NOTE | 2016-10-29 13:26 | IPNPDOC ---
Text Note Date of Service The patient was seen on 10/29/16. NOTE Subjective: Patient seen and examined at bedside. Feels about the same. Has scheduled for upper GI series this morning. Denies any chest pain, sob, abdominal pain, nausea, vomiting, diarrhea, constipation, problems with urination. Denies any other current new complaints. Objective: Vitals: (See below) General: NAD, sitting comfortably in chair HEENT: NC/AT, EOMI, PERRL, MMM Cardio: RRR, 2/6 systolic murmur Lungs: CTA B/L Abdomen: +BS, soft, NT, obese Ext: 1 + peripheral pitting edema b/l lower extremity extending to mid hayward Skin: Warm and dry Labs ( See below). Images/Procedures: None Assessment and Plan: 71-year-old male who was transferred from [facility] with multiple comorbidities, was initially thought to have a chronic obstructive pulmonary disease (COPD) exacerbation and had Levaquin and Solu-Medrol. However, was later believed to be congestive heart failure (CHF) exacerbation, was transferred to our care due to what was thought to be new onset of atrial fibrillation in addition to the patient's chronic disease and chronic obstructive pulmonary disease (COPD) exacerbation, presented with: 1. Decompensated heart failure - echo shows grade 1 diastolic dysfunction - grossly euvolemic today - grossly compensated - has been transition to PO diuretics - cardiology consultation appreciated - fluid restriction with no added salt. - Nephrology c/s, we appreciate their help 2. Anemia. - severe iron deficiency complicated with renal disease - likely start parenteral iron replacement therapy - given chronic kidney disease - nephrology consultation and given IV iron With Ferritin of only 5. Started patient on Ferrous Gluconate 324 mg tid with meals and Vitamin C. - General Surgery Dr. Coffey has been asked to evaluate patient, we appreciate his help. No endoscopy due to high risk for sedation from severe COPD , he will have upper GI series this morning, will follow up results. 3. Leukocytosis - likely secondary to steroids - no obvious source of infection 4. Chronic kidney disease - renal ultrasound showing medical disease with cysts - nephrology consultation - improving with diuresis 5. Chronic hypoxic respiratory failure - secondary to severe chronic obstructive pulmonary disease (COPD) - requires 4.5 liters of oxygen via nasal cannula at baseline - continue to titrate oxygen to maintain O2 sats between 88 and 92%. 6. Hypertension - continue beta sy and ACEI 7. Hyperlipidemia - continue pravastatin 40 mg by mouth at bedtime (q.h.s.) 8. Obstructive sleep apnea - noncompliant with CPAP at night - continue obstructive sleep apnea protocol - continue supplemental oxygen at night 9. History of gastroesophageal reflux disease (GERD). Continue proton pump inhibitor (PPI). 10. History of anxiety. Continue home medication with Zoloft and also as needed Ativan. 11. History of gout. Allopurinol switched to Uloric right now due to high risk of flare per nephrology. 12. Chronic pains. Will continue the patient on Tylenol. DVT prophylaxis: Hep subcu 5000u q8H Fluid, Electrolytes, Nutrition: Consistent carbohydrate diet, 1.5 L fluid restriction, no added salt, Code: No advanced directive Disposition: Anticipating discharge - home with services once cleared by PT. VS,Ruddy, I+O VS, Ruddy, I+O Laboratory Tests 10/29/16 06:28 Red Blood Count 3.85 L, Mean Corpuscular Volume 71.1 L, Mean Corpuscular Hemoglobin 20.5 L, Mean Corpuscular Hemoglobin Concent 28.8 L, Red Cell Distribution Width 21.9 H, Calcium Level 8.8 Vital Signs Date Time Temp Pulse Resp B/P (MAP) Pulse Ox O2 Delivery O2 Flow Rate FiO2 10/29/16 08:42 75 147/65 10/29/16 08:04 90 Nasal Cannula 4.5 10/29/16 06:00 98.8 18 10/24/16 16:00 35 I&O- Last 24 Hours up to 6 AM 10/29/16 06:00 Intake Total 1560 ml Output Total 1570 ml Balance -10 ml GME ATTESTATION GME ATTESTATION My preceptor for this patient encounter was physically present in the building during the encounter and was fully available. As needed, all aspects of the patient interview, examination, medical decision making process, and medical care plan development were reviewed and approved by the preceptor. Preceptor is aware and concurs with the plan as stated in the body of this note and will attest to such by his/her cosignature. CLARIBEL WOMACK DO Oct 29, 2016 13:26
[2016-10-29 14:00] VITALS: BP 145/58
--- NOTE | 2016-10-29 14:38 | REP ---
UPPER GI SINGLE CONTRAST: The procedure was performed under the direct supervision of Dr. Holbrook. The images were reviewed with Dr. Holbrook. The manager treasury film shows no organomegaly or biological masses. The intestinal gas pattern is nonspecific. There are degenerative changes of the spine. There are vascular calcifications identified. The exam is somewhat limited due to patient condition and mobility. Liquid barium was given in the prone oblique position. The oral and pharyngeal stages of deglutition are unremarkable. During esophageal transport, there are tertiary waves demonstrated. There is no evidence of esophagitis, stricture, mucosal ring or hiatal hernia. Gastroesophageal reflux is not demonstrated on this examination. The stomach is grossly normal. The rugal folds are smooth and regular. There is no evidence of gastritis, neoplasm or ulcer disease. The duodenum is grossly normal. The mucosal folds are smooth and regular. There is no evidence of duodenitis, pancreatitis, peptic ulcer disease or neoplasm. There is a diverticulum seen in the distal portion of the duodenum. The visualized portion of the proximal small bowel appears normal in course and caliber. IMPRESSION: 1. Esophageal dysmotility. 2. There is a diverticulum in the distal portion of the duodenum. 2 minutes and 10 seconds of fluoroscopy time was utilized for this procedure. Reviewed by FELY Cade 10/29/2016 03:06 PEdited and Signed by Nic Holbrook MD 10/29/2016 07:16 P
[2016-10-29] MEDS: PRAVASTATIN 20 MG TAB PO SCH (20:18)
--- NOTE | 2016-10-29 21:58 | IPN ---
DATE: 10/29/2016 Mr. Corea is seen this morning on his bedside. He is sitting at the edge of the bed. He reports that he is going to go down for upper GI series. The patient denies any dyspnea, chest pain, nausea or vomiting. He has chronic hypoxemia and has been on home oxygen. PHYSICAL EXAMINATION: Temperature 98.8 degrees Fahrenheit, heart rate 76 per minute and respiratory rate 18 per minute. Blood pressure 147/65 mmHg and oxygen saturation 90% on 4.5 liters oxygen. Intake and output records from yesterday showed total intake 1680 mL and output 1420 mL with a positive balance of 260 mL. His head is atraumatic. Neck veins are not abnormally distended, though difficult to be assessed sitting upright. Lungs have moderate bilateral air entry without any wheezing or rales. Heart sounds are regular. Abdomen is soft, obese and nontender. Extremities: Have no cyanosis or clubbing. Skin has no rash or ulcers. Neurologically, he is awake, alert and at his baseline mentation. Today's labs show WBC count 11.2, hemoglobin 7.9 and hematocrit 27.4. Platelets 435. Sodium 143 and potassium 4.4. BUN 64 and creatinine 2.38. PROBLEM #1: Acute on chronic kidney disease. Kidney function has only mild fluctuations. This is probably close to his baseline function. He seems to have a stage IV of chronic kidney disease at baseline. PROBLEM #2: Congestive heart failure. His volume status seems reasonably well compensated. I am concerned about possible decompensation when he goes home if he does not follow fluid restriction. The patient needs to follow 1500 mL per day of fluid restriction. He is currently on torsemide 40 mg daily. PROBLEM #3: Iron deficiency anemia. No significant change. The patient was given IV iron 400 mg of Venofer, and he can be given another dose of Venofer in a couple of weeks as an outpatient. PROBLEM #4: Disposition. From a renal standpoint, the patient can be discharged to home and follow up in my office in a couple of weeks.
[2016-10-29 22:00] VITALS: BP 148/67
[2016-10-30] MEDS ORDERED: FEBU40TA PO (00:19)
[2016-10-30] MEDS ORDERED: VITA500T PO (00:19)
[2016-10-30] MEDS ORDERED: DEMA20TA6 PO (00:19)
[2016-10-30] MEDS ORDERED: NYST10PW TOP (00:19)
[2016-10-30] MEDS ORDERED: FERR32TA PO (00:19)
[2016-10-30 06:00] VITALS: BP 142/70
[2016-10-30] MEDS: HEPARIN SOD (PORCINE) 5000 UNITS/ML VIAL SQ SCH (06:05)
[2016-10-30 06:43] LABS: MEAN CORPUSCULAR HEMOGLOBIN 20.6 pg (27.0-33.0); MEAN CORPUSCULAR HGB CONC 28.6 g/dl (32.0-36.5); RED CELL DISTRIBUTION WIDTH 22.3 % (11.5-14.5); WHITE BLOOD COUNT 11.2 K/mm3 (4.0-10.0)
[2016-10-30 06:59] LABS: CREATININE FOR GFR 2.33 MG/DL (0.70-1.30); GLOMERULAR FILTRATION RATE 29.6 (>42); MAGNESIUM LEVEL 2.4 MG/DL (1.8-2.4); POTASSIUM SERUM 4.3 MEQ/L (3.5-5.1)
[2016-10-30] MEDS: SYMBICORT 80/4.5MCG INHALER 6GM INH SCH (07:16)
[2016-10-30] MEDS: SERTRALINE HCL 50 MG TAB PO SCH (08:07)
[2016-10-30 08:08] VITALS: BP 142/70
[2016-10-30] MEDS: ASCORBIC ACID 500 MG TAB PO SCH (08:08)
[2016-10-30] MEDS: diltiaZEM **CD** 180 MG CAP PO SCH (08:08)
[2016-10-30] MEDS: OMEGA-3 1050MG CAPSULE PO SCH (08:08)
[2016-10-30] MEDS: OMEPRAZOLE 20 MG CAP PO SCH (08:08)
[2016-10-30] MEDS: CARVedilol 12.5 MG TAB PO SCH (08:08)
[2016-10-30] MEDS: TORSEMIDE 20 MG TAB PO SCH (08:09)
[2016-10-30] MEDS: ARIPiprazole 15 MG TAB (AbiLIFY) PO SCH (08:09)
[2016-10-30] MEDS: FEBUXOSTAT 40 MG TABLET (ULORIC) PO SCH (08:09)
[2016-10-30] MEDS: ENALAPRIL MALEATE 10 MG TAB PO SCH (08:09)
[2016-10-30] MEDS: HumaLOG INSULIN (NovoLOG) PER UNIT SC SCH ×2 (08:10→12:01)
[2016-10-30] MEDS: FERROUS GLUCONATE 324 MG TAB PO SCH ×2 (08:10→12:01)
[2016-10-30] MEDS: NYSTATIN 100,000 UNITS/GM TOPICAL PWD 15 GM TOP SCH (08:11)
--- NOTE | 2016-10-30 09:24 | DSES ---
DATE OF ADMISSION: 10/22/2016 DATE OF DISCHARGE: 10/30/2016 ADMISSION DIAGNOSIS: 1. Shortness of breath likely secondary to pulmonary edema from decompensated heart failure. 2. Questionable new onset of atrial fibrillation. 3. Chronic kidney disease stage III. 4. Severe chronic obstructive pulmonary disease (COPD) and chronic hypoxic respiratory failure. 5. Hypertension. 6. Hyperlipidemia. 7. Obstructive sleep apnea, noncompliant with CPAP 8. Gastroesophageal reflux disease (GERD). 9. Anxiety. 10. Morbid obesity with body mass index (BMI) of 52. 11. Gout. 12. Chronic pain. DISCHARGE DIAGNOSIS: 1. Decompensated heart failure. 2. Chronic obstructive pulmonary disease (COPD) exacerbation. 3. Severe iron deficiency anemia. Need IV iron transfusion again 2 weeks from discharge. 4. 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 5. Leukocytosis secondary to steroid. 6. Acute on chronic kidney disease. 7. Obstructive sleep apnea noncompliant with CPAP. 8. Hypertension. 9. Hyperlipidemia. 10. Gastroesophageal reflux disease (GERD). 11. Gout. 12. The patient has esophageal dysmotility. 13. The patient has a history of hemorrhoid. CONSULTANTS: Dr. Cardenas and Dr. Hairston from cardiology, Dr. Redmond from nephrology and Dr. Coffey from general surgery. PROCEDURES AND IMAGING: On 10/22/2016, the patient had a portable chest x-ray, which shows interstitial coarsening noted, cardiomegaly. On Friday, the patient had Doppler duplex of the bilateral lower extremities shows no evidence for deep vein thrombosis (DVT). On Friday, the patient had a CT of the chest without contrast shows moderate severe emphysema and chronic obstructive pulmonary disease (COPD), small right lower lobe infiltrate atelectasis and pleural effusion. On October 27, 2016, the patient had a renal ultrasound that shows consistent with medical renal disease and there was a left renal cyst. On October 29, 2016, the patient had an upper gastrointestinal (GI) series which shows esophageal dysmotility and diverticulum in the distal portion of the duodenum. OTHER LABS THAT ARE PENDING: The patient has IgA total pending, tissue transglutaminase, IgA pending. HISTORY OF PRESENT ILLNESS: 71-year-old male with past medical history of severe chronic obstructive pulmonary disease (COPD) on 4.5 liters of oxygen 24 hours a day, diastolic heart failure with preserved ejection fraction, history of anemia , chronic kidney disease stage III, hypertension, [id number] type 2 diabetes mellitus, gastroesophageal reflux disease (GERD), anxiety, gout, chronic pain was transferred from [facility] to our facility for decompensated heart failure and possibly new onset atrial fibrillation. According to the patient, he has been having increased breathing in the past four to five days. He also noticed increased sputum production, which was clear to yellow and increased leg swelling, which is worse than baseline swelling according to him. He used 4.5 liters of oxygen at home and that usually helped his obstructive sleep apnea as well. He is not compliant with mask for many years per him. The patient also received levofloxacin 750 mg initially at [facility]. It was later reduced to 500 mg. He also received Solu-Medrol 125 mg every 12 hours and Lasix 40 mg twice a day, which was increased to 60 mg IV twice a day on the morning of transfer. The patient felt better while he was at [facility]. However, while he was there, electrocardiogram (EKG) showed a possible new onset of atrial fibrillation on top of his chronic right bundle branch block and anterior fascicular block. According to the patient, he saw Dr. Cardenas two months ago, who recommended him to have a cardiac stress test done. However, the patient refused at that time. The patient does not smoke. He used to smoke seven years ago 2 1/2 packs per day for 40 years and still drinks about two beers and at least four times a week and he also noncompliant with salt intake. The patient stated he likes to eat salt. He also said that he never had cardiac catheterization or stent placement. He also denies any abdominal pain, nausea, vomiting, diarrhea or constipation. He also admits to hemorrhoid and bleeding from the hemorrhoid chronically for many months and he also had chest pressure; however, it was better with oxygen per the patient. HOSPITAL COURSE: On the same day the patient was transferred, the patient had a repeat electrocardiogram (EKG), was seen by Dr. Cardenas and believes that the patient does not have atrial fibrillation. Therefore, heparin drip was stopped and the patient continued to receive diuresis in our hospital. Later on, the patient was placed on torsemide by mouth and he was also found to be having severe iron deficiency anemia and he was started on by mouth supplement at first and then IV iron. At this point, Dr. Redmond from nephrology was also consulted and helped to manage the patient's acute on chronic kidney disease. His allopurinol was also switched to Uloric due to possible gout flare and Dr. Coffey from general surgeon was also consulted for the severe anemia and it was felt that the patient was high risk for endoscopy; therefore upper gastrointestinal (GI) series was ordered and it showed esophageal dysmotility and also diverticulum in the duodenum. On October 30, 2016, the patient passed physical therapy and was safe to discharge from renal, cardiac and a surgical standpoint. DISCHARGE CONDITION: Stable. Discharge to home with services. DISCHARGE MEDICATIONS/NEW MEDICATIONS INCLUDING: - ascorbic acid vitamin C 5000 mg one tablet by mouth twice a day - Uloric 80 mg one tablet by mouth daily - ferrous gluconate 324 mg one tablet by mouth with meals - nystatin powder topically to skin folds twice a day - furosemide 40 mg one tablet by mouth daily CONTINUE THE FOLLOWING MEDICATIONS: - DuoNeb nebulizer four times a day - Abilify 50 mg one tablet by mouth daily - Symbicort 84.5 mcg two puff inhalation twice a day - carvedilol 75 mg one tablet by mouth twice a day - diltiazem 360 mg one tablet by mouth daily - enalapril 20 mg one tablet by mouth twice a day - fish oil 1000 mg one tablet by mouth daily - glipizide 10 mg one tablet by mouth daily - Incruse Ellipta 62.5 mcg inhalation daily - lorazepam 0.5 mg tablet by mouth three times a day - omeprazole 20 mg one tablet by mouth daily - pravastatin 40 mg one tablet by mouth at bedtime (q.h.s.) - sertraline 50 mg one tablet by mouth daily STOPPED MEDICATIONS INCLUDED: Allopurinol, furosemide and Solu-Medrol. FOLLOWUP: The patient should followup with his primary care provider within 1 week, Dr. Cardenas within 2 weeks, Dr. Redmond 2 to [address] Coffey 2 to 3 weeks. IV iron transfusion again 2 weeks from discharge. DISCHARGE INSTRUCTIONS: If the patient develops additional increased shortness of breath, increased swelling in the lower extremities despite furosemide use, the patient should call his primary care provider or go to the emergency room. The patient was discussed with the attending doctor, Dr. Carbajal. My preceptor for this patient encounter was Dr. Carbajal. The preceptor was physically present in the building during the encounter and was fully available. As needed, all aspects of the patient interview, examination, medical decision making process, and medical care plan development were reviewed and approved by the preceptor. The preceptor is aware and concurs with the plan as stated in the body of this note and will attest to such by his/her cosignature. I, Rudolph Carbajal, have both independently examined this patient as well as reviewed the documentation. I have discussed in detail with the resident the findings and plan of treatment as documented in the residents documentation. I will continue to follow the patient and offer further guidance to the patients care as necessary during this hospital stay. NICK
--- NOTE | 2016-10-30 23:22 | IPN ---
DATE: 10/30/2016 Mr. Corea is seen this morning on his bedside. He is sitting in the chair and denies any nausea or vomiting. He has chronic hypoxemia and dyspnea and remained on oxygen. He denies any fever or chills. PHYSICAL EXAMINATION: Temperature 97.8 degrees Fahrenheit, heart rate 74 per minute and respiratory rate 18 per minute. Blood pressure 142/70 mmHg and oxygen saturation 91% on 4.5 liters oxygen. Intake and output records from yesterday showed total intake 880 and output 1300. His head is atraumatic. Neck is supple and JVD is not visible sitting upright. His lungs have diminished breath sounds at bases. Heart: Sounds are regular. Abdomen is obese and nontender. Bowel sounds are normal. Extremities have no cyanosis or clubbing. Neurologically he is awake, alert and oriented times three. Today's labs show WBC count 11.2, hemoglobin 8.5 and hematocrit 29.7. Sodium 143 and potassium 4.3. BUN 57 and creatinine 2.33. PROBLEMS: 1. Acute renal failure superimposed on chronic kidney disease. Mild fluctuations in BUN and creatinine are noted and there is no trend for creatinine so far. He has been in the range of 2.32 to 2.5 mg/dl over last 5 days. This most likely is baseline kidney function. He does not have any uremic symptoms and electrolytes are within normal range. His kidney function can be followed as outpatient in the office. 2. Iron deficiency anemia. The patient has hemorrhoids with blood loss anemia causing severe iron deficiency. He received one dose of Venofer 400 mg intravenously a couple of days ago. He will be due for another dose of Venofer 400 mg in 2 weeks. Alternative will be to give him an infusion of InFeD 1000 mg. He is going to continue with oral iron supplement. He will be followed up by his PCP as an outpatient. The patient had upper GI series done yesterday and has not had a colonoscopy in recent past. 3. Congestive heart failure. Volume status seems reasonably well-compensated at present. He remains on torsemide 40 mg daily. The patient will need to follow a fluid restriction of 1500 mL per day. Disposition: From a renal standpoint, the patient can be discharged to home and follow up as an outpatient.
[2016-10-31 00:06] LABS: IgA ULTRASENSITIVE 443.4 mg/dL (72-321)
== END 2016-10-30 12:45 | disposition home health service (06) | DRG 291 ==
LOC: M ICU 16:39 → M MS5PR 10-24 18:52
PROVIDERS: ADMIT Internal Medicine; ATTEND Internal Medicine
DX: I13.0 Hypertensive heart and chronic kidney disease with heart failure and stage 1 through stage 4 chronic kidney disease, or unspecified chronic kidney disease (principal); I50.33 Acute on chronic diastolic (congestive) heart failure; I45.2 Bifascicular block; J44.1 Chronic obstructive pulmonary disease with (acute) exacerbation; Z68.43 Body mass index [BMI] 50.0-59.9, adult; J96.11 Chronic respiratory failure with hypoxia; N17.9 Acute kidney failure, unspecified; N18.4 Chronic kidney disease, stage 4 (severe); E11.21 Type 2 diabetes mellitus with diabetic nephropathy; E11.22 Type 2 diabetes mellitus with diabetic chronic kidney disease; K21.9 Gastro-esophageal reflux disease without esophagitis; K64.8 Other hemorrhoids; G89.29 Other chronic pain; F41.9 Anxiety disorder, unspecified; E78.5 Hyperlipidemia, unspecified; M10.9 Gout, unspecified; F32.9 Major depressive disorder, single episode, unspecified; K22.8 Other specified diseases of esophagus; K57.10 Diverticulosis of small intestine without perforation or abscess without bleeding; G47.33 Obstructive sleep apnea (adult) (pediatric); E66.01 Morbid (severe) obesity due to excess calories; D72.829 Elevated white blood cell count, unspecified; D50.0 Iron deficiency anemia secondary to blood loss (chronic); Z87.891 Personal history of nicotine dependence; Z91.11 Patient's noncompliance with dietary regimen; Z79.84 Long term (current) use of oral hypoglycemic drugs; Z79.899 Other long term (current) drug therapy; Z99.81 Dependence on supplemental oxygen; Z91.19 Patient's noncompliance with other medical treatment and regimen

== ENCOUNTER → 2018-08-21 | Outpatient (REF) | payer MEDICARE, BC ==
[~2018-08-21] MED LIST: ABIL30TA4 PO; ALLO100T PO; CARV25TA PO; DEMA20TA6 PO; DILT1CAP9 PO; ENAL20TA PO; FEBU40TA PO; FERR32TA PO; FISH1000 PO; FURO40TA2 PO; GLIP5TAB8 PO; INCR1INH INH; IPRA0.00 INH; LORA0.5T11 PO; METH125VL IM; NYST-15 TOP; OMEP20CA3 PO; PRAV40TA2 PO; SERT-141 PO; SYMB80INH INH; VITA500T PO
[2018-08-21 14:33] LABS: BASO # 0.1 10^3/uL (0.0-0.2); BASO % 0.8 % (0.0-1.0); EOS # 0.4 10^3/uL (0.0-0.50); HEMATOCRIT 39.9 % (42.0-52.0); HEMOGLOBIN 11.9 g/dl (13.5-17.5); LYMPH # 1.2 10^3/uL (1.5-4.5); LYMPH % 10.9 % (24.0-44.0); MEAN CORPUSCULAR HEMOGLOBIN 23.4 pg (27.0-33.0); MEAN CORPUSCULAR HGB CONC 29.8 g/dl (32.0-36.5); MEAN CORPUSCULAR VOLUME 78.4 fl (80.0-96.0); MONO % 8.8 % (0.0-5.0); NEUTROPHILS # 8.1 10^3/uL (1.8-7.7); NEUTROPHILS % 74.6 % (36.0-66.0); PLATELET COUNT, AUTOMATED 335 10^3/uL (150-450); RED BLOOD COUNT 5.09 10^6/uL (4.30-6.10); WHITE BLOOD COUNT 10.9 10^3/uL (4.0-10.0)
== END ==
LOC: M LAB REF 13:51
PROVIDERS: ATTEND Internal Medicine Nephrology
DX: N18.9 Chronic kidney disease, unspecified (principal); D63.1 Anemia in chronic kidney disease